=== PATIENT | female | born 1960 | race Caucasian/White ===

== ENCOUNTER 2017-06-03 17:12 | Inpatient (IN) ==
[2017-06-03] MEDS ORDERED: PHYTONADIONE 10 MG/1 ML AMP SUBCUT ONE (19:44)
[2017-06-03] MEDS ORDERED: SODIUM CHLORIDE 0.9% 250 ML IV PRN (19:48)
[2017-06-03] MEDS ORDERED: ONDANSETRON 4 MG/2 ML VIAL IV PRN (19:49)
[2017-06-03] MEDS ORDERED: ACETAMINOPHEN 325 MG TABLET PO PRN (19:49)
[2017-06-03] MEDS ORDERED: ZALEPLON 5 MG CAPSULE PO PRN (19:49)
[2017-06-03] MEDS ORDERED: NITROGLYCERIN SL 0.4 MG TABLET SL PRN (19:52)
--- NOTE | 2017-06-03 19:57 | Hospitalist History & Physical ---
Assessment and Plan (1) Anemia Status: Acute Assessment and plan: The patient is admitted the hospital for evaluation of anemia. 3 units packed red blood cell transfusion. The patient will receive vitamin K. We are going to hold Coumadin and continue her usual home medications. I am going leave off amiodarone because it is going to intensify the Coumadin toxicity. The patient will have hydration after transfusion is given. Will recheck electrolytes and pro time in the morning as well as hemoglobin. I am going to consult Dr. Galarza for GI. Current Visit: Yes (2) Guaiac positive stools Status: Acute Current Visit: Yes (3) Diabetes Status: Chronic Current Visit: No (4) History of atrial fibrillation Status: Chronic Current Visit: No (5) PIOTR (obstructive sleep apnea) Status: Chronic Current Visit: No History of Present Illness Chief complaint: Profound anemia with guaiac positive stools History of present illness: Ms. Betancourt is a 57 year old female with history of atrial fibrillation requiring Coumadin therapy. The patient has diabetes mellitus, obesity, obstructive sleep apnea, essential hypertension. The patient has been feeling short of breath with cough and congestion. She went to her nurse practitioner. She was found to have profound anemia with hemoglobin 5.4 and Coumadin toxicity with INR greater than 6. The patient was referred from the nurse practitioner to [place] emergency room and from there referred to direct admission in the intensive care unit here at [facility]. The patient denies vomiting or bright red bleeding from her rectum. She has had dark stools for greater than a week. She was last hospitalized about 2 weeks ago at [facility] for infection and ulcerations on the right lower extremity which have now improved. The patient denies fever, chills, angina at this time. The patient was directly admitted to the coronary care unit from [place] emergency room for therapy of profound anemia with guaiac positive stools and elevated INR. Home Medications Medication Instructions Recorded Confirmed Type Aspirin [Ecotrin] 81 mg PO DAILY 04/13/17 04/13/17 History Desipramine [Norpramin] 25 mg PO DAILY 04/13/17 04/13/17 History Ferrous Sulfate Tab [Feosol 325 mg PO DAILY 04/13/17 04/13/17 History Original Tab] Gabapentin Cap/Tab [Neurontin 300 mg PO BID 04/13/17 04/13/17 History Cap/Tab] Nitroglycerin Sl Tab [Nitrostat] 0.4 mg SL Q5M PRN 04/13/17 04/13/17 History Potassium Chloride 40 meq PO DAILY 04/13/17 04/13/17 History clonazePAM [Klonopin] 1 mg PO DAILY 04/13/17 04/13/17 History Carbidopa/Levodopa 25-100 [Sinemet 1 tablet PO DAILY #30 tablet 04/20/17 Rx 25-100] Carvedilol [Coreg] 12.5 mg PO BID #60 tablet 04/20/17 Rx Furosemide Tab [Lasix Tab] 40 mg PO DAILY #30 tablet 04/20/17 Rx Glimepiride [Amaryl] 4 mg PO DAILY W/BREAKFAST #30 04/20/17 Rx tablet Insulin NPH Hum/Reg Insulin Hm 20 unit SUBCUT BID #10 ml 04/20/17 Rx [NovoLIN 70/30] Levothyroxine Tab [Synthroid Tab] 25 mcg PO DAILY@0700 #30 tablet 04/20/17 Rx Lovastatin 40 mg PO DAILY #30 tablet 04/20/17 Rx Ranitidine Tab [Zantac Tab] 150 mg PO BID #60 tablet 04/20/17 Rx Warfarin [Coumadin] 7.5 mg PO DAILY@1800 #30 tablet 04/20/17 Rx cephALEXin [Cephalexin] 500 mg PO BID #16 capsule 04/20/17 Rx Allergies Allergy/AdvReac Type Severity Reaction Status Date / Time No Known Allergies Allergy Verified 04/13/17 22:15 Medical,Surgical,& Family Hx - Medical History Cardio: History of: CHF, Cardiovascular Problems (Afib; venous stasis ) Psychological: History of: Anxiety Disorders, Depression No history of: Previous Suicide Attempt Endocrine: History of: Thyroid Disorder Respiratory: History of: COPD, Obstructive Sleep Apnea Gastrointestinal: History of: Hemorrhoids (hemorrhoidectomy at [place] with dr. leach) - Surgical History Reproductive Surgeries: Surgical HX of;: Hysterectomy (total hysterectomy) - Family History Family History: Reports;: Family Cancer (Brother and Mother), Family Diabetes ( Mother), Family Heart Disease (Brother, Sister, Mother), Family Hypertension ( mother and sister), Family Stroke (Brother) Denies;: Family Anesthesia Reaction, Family Hematology, Family Psychiatric Problems - Social History Smoking Status: Never smoker Frequency of Alcohol Use: Occasionally Marital Status: Lives With:: Spouse Functional capacity: independent ambulation 12 point system: reviewed and no additional remarkable complaints except as stated Exam - Constitutional Exam: Constitutional System: Mild distress. No tremulousness. Morbidly obese Head: Normocephalic, atraumatic. Ears, Nose and Throat System: No evidence of Otitis or Mastoiditis. No epistaxis or discharge Eyes System: Pupils equal, round, and reactive. Extraocular muscles intact. Neck: Supple, without adenopathy, No jugular venous distention. No thyromegaly , neck mass, or prior surgery apparent. Respiratory System: Chest clear to auscultation. Cardiovascular System: Heart with regular rate and rhythm, tachycardic. No murmur. GI System: Abdomen soft, nontender. Normo active bowel sounds present. Musculoskeletal System: limbs with 1+ pedal edema. Decreased distal pulses. Healed ulcerations below the knees bilaterally Neurological System: No discernable sensory deficit. No aphasia Psychiatric System: Conversation is rational Results - Labs Lab Results: I have reviewed the past 24 hour labs Labs: Laboratory obtained at [facility] emergency room reveals INR 5.49 hemoglobin 5.4 white blood cell count 10.5 platelets 312,000 stool occult blood positive sodium 141 potassium 3.1 chloride 102 CO2 of 29 BUN 16 creatinine 1.7 - EKG EKG results: sinus rhythm Quality Measures - VTE Contraindication to Pharmacological VTE Prophylaxis: Active Bleeding
[2017-06-03] MEDS: INSULIN NPH/REGULAR 70/30 100 UNIT/ML SUBCUT SCH (20:32)
[2017-06-03] MEDS: PANTOPRAZOLE 40 MG TABLET PO SCH (20:38)
[2017-06-04 05:24] LABS: Basophils # 0.1 10*3/uL (0.0-0.2); Basophils % 0.6 % (0.0-0.8); Eosinophils # 0.4 10*3/uL (0.0-0.87); Eosinophils % 4.6 % (0.00-10.9); Hematocrit 20.9 VOL% (35.7-47.0); Hemoglobin 6.6 GM/DL (12.0-16.0); Immature Granulocytes % 1.9 %; Immature Granulocytes Absolute 0.15 #; Lymphocytes # 1.8 10*3/uL (1.4-4.0); Lymphocytes % 21.9 % (21.3-54.2); Mean Corpuscular HGB Conc 31.6 GM/DL (32-36); Mean Corpuscular Hemoglobin 30 PG (27-34); Mean Corpuscular Volume 96.3 FL (87-102); Monocytes # 0.6 10*3/uL (0.11-0.8); Monocytes % 7.6 % (1.7-12.7); NRBC # 0.02 10*3/uL; Neutrophils # 5.1 10*3/uL (1.4-7.4); Neutrophils % 63.4 % (38.7-73.9); Platelet Count 217 T/CUMM (130-400); Red Blood Count 2.17 MC/CUMM (3.8-5.5); Red Cell Distribution Width 21.1 % (9.3-17.3)
[2017-06-04 05:38] LABS: INR 4.4
[2017-06-04 05:39] LABS: PT Patient Result 51.4 SECS
[2017-06-04 05:53] LABS: Calcium 8.1 MG/DL (8.5-10.1); Magnesium 2.1 MG/DL (1.8-2.4); Osmolality,Calculated 281.3 MOS/KG (273-304); Potassium 2.9 MMOL/L (3.5-5.1)
[2017-06-04 05:54] LABS: Troponin I Only 0.189 NG/ML (0.00-0.045)
--- NOTE | 2017-06-04 06:47 | Gastrointestinal Consult Note ---
Assessment and Plan (1) Anemia Status: Acute Assessment and plan: This patient has black stools likely related to her iron intake. She states that she did not always start off with stools were black but over the last month or so these have turned quite dark leading me to believe there is an upper GI bleed in this patient. This is by no means clear she is having bright red blood per rectum upon occasion as well with left lower quadrant pain and no reflux symptoms. We will start with upper endoscopy tomorrow to rule out esophagitis gastritis gastric cancer peptic ulcer disease and possibly biopsy for sprue. If no significant findings are seen will proceed with colonoscopy the following day. We will leave the patient on clear liquids just in case she needs to prep for colonoscopy as she has fairly severe constipation. She will likely need the additional day of clear liquids. Risks of the procedure were reviewed with the patient and include but are not limited to: Bleeding, infection, perforation, cardiac and pulmonary compromise. She will be getting additional vitamin K today as her INR is still 4.4. Current Visit: Yes (2) Coumadin toxicity Status: Acute Assessment and plan: Patient's INR is down from 6-->4.4 today. We will continue to watch this, I would certainly like to see her down 1.3 or below due to her active bleeding until we can figure out exactly what is going on. She may be a good candidate for Xarelto when this is all of a sudden done if there is no significant bleeding source. I have ordered daily PT/INRs. We will give another dose of vitamin K today. Current Visit: Yes (3) Constipation Status: Acute Assessment and plan: Patient states that she can go as long as a week without having a bowel movement , she does have some left lower quadrant pain possibly related to this condition , we will likely perform colonoscopy before she goes home once her INR is closer to 1.3. We will start with an EGD tomorrow. Current Visit: Yes (4) Left lower quadrant pain Status: Acute Assessment and plan: Possibly related to the underlying constipation of this patient. We will perform colonoscopy at some point and explore the left lower quadrant, I do not believe that she is having diverticulitis at this time. Further recommendations post colonoscopy. We will go ahead and start the patient on some MiraLAX due to this constipation. Current Visit: Yes (5) Guaiac positive stools Status: Acute Current Visit: Yes History of Present Illness Chief complaint: H&H 20.9/6.6, melena, Coumadin toxic, bright red blood per rectum History of present illness: Ms. Betancourt is a 57 year old female who has a history of seeing Woodrow Jerome is her primary doctor and Dr. Zuniga as her transformation consultant. She carries a diagnosis of atrial fibrillation. She states that she has been on iron for the last year or 2 and that she tends to run constipated. She states that with her constipation she can go sometimes as long as a week or more without a bowel movement. The patient has difficulty with some recollection of history and so the veracity of these statements is unclear. What is clear is that the patient has been treated with antibiotics 2 weeks ago for cellulitis and it appears to Dr. Jerome had cut back her Coumadin but after the antibiotic therapy she states that the Coumadin got restarted at previous dose of 7.5 mg per day and she went to a nurse practitioner was discovered to have a INR of > 6 and a low hematocrit with a hemoglobin of 5.4. Patient was brought into the ICU for monitoring as she was transfused her blood as she has a history of sleep apnea and morbid obesity. The patient is having some mild left lower quadrant pain possibly related to her constipation and does complain of some bright red blood per rectum sporadically. She does not complain of any reflux symptoms. She has had bright red blood per rectum sometime the last several weeks but can attest to exactly when. She has been feeling weak and dizzy for the last several days this is intensified her shortness of breath and dyspnea on exertion. She has been given some vitamin K-- her INR is down to 4.4 today with a hematocrit measured at 20.9 hemoglobin up to 6.6 with 2 out of 3 units of blood transfused. She has had colonoscopy done but this was over 20 years ago by a [place] physician by the name of Mc. She has never had upper endoscopy to her knowledge. The patient drinks approximately 4 fuzzy navel wine coolers per day. She denies NSAIDs. She states that years ago she was a much heavier drinker, 6-10 beers per day at times. Home Medications Medication Instructions Recorded Confirmed Type Aspirin [Ecotrin] 81 mg PO DAILY 04/13/17 06/03/17 History Desipramine [Norpramin] 25 mg PO DAILY 04/13/17 06/03/17 History Ferrous Sulfate Tab [Feosol 325 mg PO DAILY 04/13/17 06/03/17 History Original Tab] Gabapentin Cap/Tab [Neurontin 600 mg PO BID 04/13/17 06/03/17 History Cap/Tab] Nitroglycerin Sl Tab [Nitrostat] 0.4 mg SL Q5M PRN 04/13/17 06/03/17 History Potassium Chloride 40 meq PO DAILY 04/13/17 06/03/17 History clonazePAM [Klonopin] 1 mg PO DAILY 04/13/17 06/03/17 History Carbidopa/Levodopa 25-100 [Sinemet 1 tablet PO DAILY #30 tablet 04/20/17 Rx 25-100] Carvedilol [Coreg] 12.5 mg PO BID #60 tablet 04/20/17 06/03/17 Rx Glimepiride [Amaryl] 4 mg PO DAILY W/BREAKFAST #30 04/20/17 06/03/17 Rx tablet Insulin NPH Hum/Reg Insulin Hm 20 unit SUBCUT BID #10 ml 04/20/17 06/03/17 Rx [NovoLIN 70/30] Levothyroxine Tab [Synthroid Tab] 25 mcg PO DAILY@0700 #30 tablet 04/20/1706/03 Rx Lovastatin 40 mg PO DAILY #30 tablet 04/20/17 06/03/17 Rx Ranitidine Tab [Zantac Tab] 150 mg PO BID #60 tablet 04/20/17 06/03/17 Rx cephALEXin [Cephalexin] 500 mg PO BID #16 capsule 04/20/17 06/03/17 Rx Furosemide Tab [Lasix Tab] 40 mg PO BID 06/03/17 06/03/17 History Warfarin [Coumadin] 2 mg PO DAILY 06/03/17 06/03/17 History Allergies Allergy/AdvReac Type Severity Reaction Status Date / Time No Known Allergies Allergy Verified 04/13/17 22:15 Medical,Surgical,& Family Hx - Medical History Cardio: History of: CHF, Cardiovascular Problems (Afib; venous stasis ) Psychological: History of: Anxiety Disorders, Depression No history of: Previous Suicide Attempt Endocrine: History of: Thyroid Disorder Respiratory: History of: COPD, Obstructive Sleep Apnea Gastrointestinal: History of: Hemorrhoids (hemorrhoidectomy at [place] with dr. leach) - Surgical History Reproductive Surgeries: Surgical HX of;: Hysterectomy (total hysterectomy) - Family History Family History: Reports;: Family Cancer (Brother and Mother), Family Diabetes ( Mother), Family Heart Disease (Brother, Sister, Mother), Family Hypertension ( mother and sister), Family Stroke (Brother) Denies;: Family Anesthesia Reaction, Family Hematology, Family Psychiatric Problems - Social History Smoking Status: Never smoker Frequency of Alcohol Use: Occasionally Review of systems: Constitutional: Denies fever, chills, nausea, and vomiting Eyes: Denies dry eyes, and scleral icterus HENT: Denies headaches Cardiovascular: Denies acute chest pain and claudication Respiratory: Patient admits to shortness of breath, wheezing, and difficulty breathing, denies cough Gastrointestinal: As noted in the HPI Genitourinary: Denies dysuria and hematuria Neurologic: Denies vision loss, and loss of sensation Musculoskeletal: She does have joint swelling, joint stiffness, and muscular weakness Psychiatric: Denies depression and gretchen symptoms Heme-Lymph: She does have some easy bruising, but no lymph node enlargement or tenderness, night sweats, as well as some mild excessive bleeding lately Allergies-immunologic: Denies pruritus and rhinorrhea Exam - Constitutional Vitals: Period Temp Pulse Resp BP Sys/Orozco Pulse Ox Last 24 Hr 97.5 F-98.8 F 64-107 12-22 119-159/57-92 93-100 Exam: Constitutional: Well-developed, well-nourished, alert, but mildly confused and in no acute distress Head and face: Head: Normocephalic atraumatic Eyes: Conjunctiva without injection, no gross scleral icterus, pupils equal and round bilaterally Ears: Intact to conversation in both ears Nose: External appearance is normal, nares patent Mouth: Oral mucous membranes moist without erythema dentition noted to be without erosion Neck: Normal appearance, no masses or tenderness, trachea midline Thyroid: Gland midline and appropriate size for age Respiratory: Normal respiratory effort, clear to auscultation, she does have some end expiratory wheezes, but no rhonchi or rales Cardiovascular: Regular rate and rhythm, normal S1, S2, the exam is without rubs, murmurs or gallops. Gastrointestinal: Nontender to palpation, normal active bowel sounds, tone normal without rigidity or guarding, no masses present, no hepatomegaly, no spleen tip felt. She has a large abdominal pannus, rectal exam shows brown stool that is moderately guaiac positive, she has pain in all directions and has some low-grade hemorrhoids noted mostly posteriorly. Lymphatic: Neck without adenopathy, axilla without lymphadenopathy present Musculoskeletal: Right and left lower extremities without evidence of edema Skin and subcutaneous tissue: The patient has evidence of recent cellulitis with hyperpigmentation on the tibial regions bilaterally there are signs of recent ulceration here that appears to be healing fairly well. Normal skin turgor, digits and nails without clubbing/cyanosis/deformities. Neurologic: The patient is grossly oriented to person place and time, there is some mild confusion noted as well as decreased hearing bilaterally cranial nerves show tongue movements are normal with normal tongue extrusion midline, light touch sensation is intact. Psychiatric: No hallucinations or delusions are present, does not appear depressed Results - Labs CBC & BMP: 06/04/17 04:53 06/04/17 04:53 Quality Measures - VTE Contraindication to Pharmacological VTE Prophylaxis: Active Bleeding
[2017-06-04] MEDS: LEVOTHYROXINE 25 MCG TABLET PO SCH (07:11)
[2017-06-04] MEDS ORDERED: PHYTONADIONE 10 MG/1 ML AMP SUBCUT ONE (07:30)
[2017-06-04] MEDS: PANTOPRAZOLE 40 MG TABLET PO SCH ×2 (08:37→20:23)
[2017-06-04] MEDS: GLIMEPIRIDE 4 MG TABLET PO SCH (08:37)
[2017-06-04] MEDS: CARBIDOPA/LEVODOPA 25-100 MG TABLET PO SCH (08:37)
[2017-06-04] MEDS: POTASSIUM CHLORIDE 20 MEQ TABLET PO SCH ×3 (08:37→20:23)
[2017-06-04] MEDS: clonazePAM 0.5 MG TABLET PO SCH (08:37)
[2017-06-04] MEDS: NIFEdipine 10 MG CAPSULE PO PRN ×2 (08:37→14:33)
[2017-06-04] MEDS: INSULIN NPH/REGULAR 70/30 100 UNIT/ML SUBCUT SCH ×2 (08:38→17:00)
[2017-06-04] MEDS: POLYETHYLENE GLYCOL POWDER 17 GM PACK PO SCH ×2 (08:44→20:23)
[2017-06-04 09:50] LABS: Hematocrit 24.7 VOL% (35.7-47.0); Hemoglobin 7.7 GM/DL (12.0-16.0)
[2017-06-04] MEDS: POTASSIUM CHLORIDE RIDER 10 MEQ in PREMIX 1 EACH IV SCH ×4 (10:00→13:06)
[2017-06-04 10:30] LABS: Hematocrit 22.6 VOL% (35.7-47.0); Hemoglobin 7.4 GM/DL (12.0-16.0)
--- NOTE | 2017-06-04 10:51 | Hospitalist Progress Note ---
Assessment and Plan - Time spent with patient Time spent with patient: Greater than 30 minutes (1) Anemia Status: Acute Current Visit: Yes Qualifiers: Other causes of anemia: acute posthemorrhagic (2) History of atrial fibrillation Status: Chronic Assessment and plan: Rate controlled. Coumadin held. Vitamin K given. Current Visit: No (3) Diabetes Status: Chronic Current Visit: No Qualifiers: Diabetes mellitus type: type 2 (4) PIOTR (obstructive sleep apnea) Status: Chronic Current Visit: No (5) Coumadin toxicity Status: Acute Current Visit: Yes Qualifiers: Encounter type: initial encounter Injury intent: accidental or unintentional Qualified Code(s): T45.511A - Poisoning by anticoagulants, accidental (unintentional), initial encounter (6) Morbid obesity Status: Acute Current Visit: Yes (7) Hypothyroidism Status: Acute Current Visit: Yes Qualifiers: Hypothyroidism type: acquired Qualified Code(s): E03.9 - Hypothyroidism, unspecified Hospitalist: Subjective Interval history: The patient was admitted overnight with acute blood loss anemia and elevated INR on Coumadin. She is being worked up for GI bleeding. GI consult reviewed. Blood transfusion in progress. Vital signs are stable. Patient seen and examined. No acute events overnight. Case discussed with nursing staff. Labs reviewed. Exam - Constitutional Vitals: Period Temp Pulse Resp BP Sys/Orozco Pulse Ox Last 24 Hr 97.5 F-98.8 F 64-107 12-24 118-161/57-92 90-100 Exam: Constitutional System: No distress. No tremulousness. Morbidly obese Head: Normocephalic, atraumatic. Ears, Nose and Throat System: No pain or tenderness. No epistaxis or discharge Eyes System: Pupils equal, round, and reactive. Extraocular muscles intact. Neck: Supple, without adenopathy, No jugular venous distention. Respiratory System: Chest clear to auscultation. Cardiovascular System: Heart with regular rate and rhythm. No murmur. GI System: Abdomen soft, nontender. Normo active bowel sounds present. Musculoskeletal System: limbs with no pedal edema. Full distal pulses. Neurological System: No discernable sensory deficit. No aphasia Psychiatric System: Conversation is rational Results - Labs CBC & BMP: 06/04/17 10:24 06/04/17 04:53 Lab Results: I have reviewed the past 24 hour labs Quality Measures - VTE Contraindication to Pharmacological VTE Prophylaxis: Active Bleeding
[2017-06-04] MEDS: DESITIN 4OZ/NYSTATIN 15 GRAM MIXTURE PASTE TOP SCH ×2 (12:02→20:25)
[2017-06-04] MEDS ORDERED: POTASSIUM CHLORIDE RIDER 100 ML IV ONE (13:05)
[2017-06-04] MEDS ORDERED: SODIUM CHLORIDE 0.9% 250 ML IV PRN (13:32)
[2017-06-04] MEDS: LOVASTATIN 20 MG TABLET PO SCH (14:33)
[2017-06-04 19:11] LABS: Hematocrit 23.9 VOL% (35.7-47.0); Hemoglobin 7.5 GM/DL (12.0-16.0)
[2017-06-04] MEDS: GABAPENTIN 300 MG CAPSULE PO SCH (20:23)
[2017-06-04] MEDS: FUROSEMIDE 40 MG TABLET PO SCH (20:23)
[2017-06-04] MEDS: CARVEDILOL 12.5 MG TABLET PO SCH (20:23)
[2017-06-04] MEDS: FAMOTIDINE 20 MG TABLET PO SCH (20:23)
[2017-06-05] MEDS: LEVOTHYROXINE 25 MCG TABLET PO SCH (06:19)
[2017-06-05 06:26] LABS: Hematocrit 28.5 VOL% (35.7-47.0); Hemoglobin 9.1 GM/DL (12.0-16.0)
[2017-06-05 06:27] LABS: Basophils # 0.1 10*3/uL (0.0-0.2); Basophils % 0.7 % (0.0-0.8); Eosinophils # 0.4 10*3/uL (0.0-0.87); Eosinophils % 4.1 % (0.00-10.9); Hematocrit 28.3 VOL% (35.7-47.0); Hemoglobin 9.2 GM/DL (12.0-16.0); Immature Granulocytes % 1.5 %; Immature Granulocytes Absolute 0.13 #; Lymphocytes % 22.9 % (21.3-54.2); Mean Corpuscular HGB Conc 32.5 GM/DL (32-36); Mean Corpuscular Hemoglobin 30 PG (27-34); Mean Corpuscular Volume 91.3 FL (87-102); Mean Platelet Volume 9.3 FL (9.6-12.0); Monocytes # 0.6 10*3/uL (0.11-0.8); Monocytes % 6.8 % (1.7-12.7); Neutrophils # 5.7 10*3/uL (1.4-7.4); Platelet Count 241 T/CUMM (130-400); Red Cell Distribution Width 20.2 % (9.3-17.3); White Blood Count 8.9 T/CUMM (4-12)
[2017-06-05 06:41] LABS: INR 1.4; PT Patient Result 15.1 SECS
[2017-06-05 07:04] LABS: Bilirubin,Total 1.1 MG/DL (0.2-1.0); Calcium 8.5 MG/DL (8.5-10.1); Potassium 3.5 MMOL/L (3.5-5.1)
[2017-06-05] MEDS: POLYETHYLENE GLYCOL POWDER 17 GM PACK PO SCH ×2 (09:00→20:09)
[2017-06-05] MEDS: PANTOPRAZOLE 40 MG TABLET PO SCH ×2 (09:00→20:10)
[2017-06-05] MEDS: POTASSIUM CHLORIDE 20 MEQ TABLET PO SCH ×4 (09:00→20:09)
[2017-06-05] MEDS: GABAPENTIN 300 MG CAPSULE PO SCH ×2 (09:00→20:10)
[2017-06-05] MEDS: FAMOTIDINE 20 MG TABLET PO SCH ×2 (09:00→20:10)
[2017-06-05] MEDS: FUROSEMIDE 40 MG TABLET PO SCH ×2 (09:00→20:09)
[2017-06-05] MEDS: INSULIN NPH/REGULAR 70/30 100 UNIT/ML SUBCUT SCH ×2 (09:13→17:00)
[2017-06-05] MEDS: GLIMEPIRIDE 4 MG TABLET PO SCH (09:13)
--- NOTE | 2017-06-05 11:38 | Hospitalist Progress Note ---
Assessment and Plan - Time spent with patient Time spent with patient: Less than 30 minutes (1) Anemia Status: Acute Assessment and plan: Improved this a.m after receiving 2 units RBCs: H&H up to 9.1 and 28.5 from 7.5 & 23.9. GI following patient scheduled for GI scope this a.m. for further evaluation of GI bleed. Will continue to monitor. Current Visit: Yes Qualifiers: Other causes of anemia: acute posthemorrhagic (2) Coumadin toxicity Status: Acute Assessment and plan: Improving after 2 units FFP. INR down to 1.4 from 4.4. PT down to 15.1 from 51.4. Will continue to monitor. Will continue to hold coumadin. Current Visit: Yes Qualifiers: Encounter type: initial encounter Injury intent: accidental or unintentional Qualified Code(s): T45.511A - Poisoning by anticoagulants, accidental (unintentional), initial encounter (3) Diabetes Status: Chronic Assessment and plan: 06/05/17 - Blood sugar are controlled 120s-180s at present. Will continue to monitor and continue current diabetic medication regimen. Current Visit: No Qualifiers: Diabetes mellitus type: type 2 (4) History of atrial fibrillation Status: Chronic Assessment and plan: 06/05/17 - Chronic afib - rate contolled 68-82 heart rate. Current Visit: No Hospitalist: Subjective Interval history: 06/05/17 - Ms Betancourt. Patient seen and chart reviewed. She verbalizes having a terrible night because she was not able to rest related to her "stomach just doesn't feel good". She denies shortness of breath, nausea or vomiting. No acute distress noted. She is awaiting GI (Dr Galarza) to be taken her for procedure this a.m. to further assess her anemia/GI bleed. Her H&H has improved this a.m post transfusion H&H (9.1 and 28.5). Her INR has improved from 4.4 to 1.4 after receiving 2 units of FFP and [place] held. Exam - Constitutional Vitals: Period Temp Pulse Resp BP Sys/Orozco Pulse Ox Last 24 Hr 97.0 F-99 F 68-92 16-24 111-166/53-97 92-100 General appearance: morbidly obese - Head Head exam: Present: normal inspection - Eye Eye exam: Present: EOMI Pupils: Present: EDI - Neck Neck exam: Present: normal inspection. Absent: thyromegaly - Respiratory Respiratory exam: Present: clear to auscultation bilaterally. Absent: stridor, wheezes - Cardiovascular Cardiovascular exam: Present: regular rate and rhythm - GI/Abdominal GI/Abdominal exam: Present: normal bowel sounds, soft. Absent: tenderness, rebound - Extremities Exam Extremities exam: Present: full ROM. Absent: edema - Neurological Exam Neurological exam: Present: alert, oriented X3 - Psychiatric Psychiatric exam: Present: normal affect, other (conversation rational) - Skin Skin exam: Present: normal color, warm, dry Results - Labs CBC & BMP: 06/05/17 05:13 06/05/17 05:13 Lab Results: I have reviewed the past 24 hour labs - Impressions Will Have GI scope procedure today awaiting results to be reported/reviewed. Quality Measures - VTE Contraindication to Pharmacological VTE Prophylaxis: Active Bleeding
[2017-06-05] MEDS: NYSTATIN POWDER 15 GM BOTTLE TOP SCH ×2 (15:26→20:10)
[2017-06-05] MEDS: DESITIN 4OZ/NYSTATIN 15 GRAM MIXTURE PASTE TOP SCH ×2 (15:27→20:10)
[2017-06-05] MEDS ORDERED: PROPOFOL 200 MG/20 ML VIAL IV ONE (17:46)
[2017-06-05] MEDS ORDERED: LIDOCAINE 1% 5 ML VIAL ONE (17:46)
[2017-06-05] MEDS: CARBIDOPA/LEVODOPA 25-100 MG TABLET PO SCH (18:05)
[2017-06-05] MEDS: CARVEDILOL 12.5 MG TABLET PO SCH ×2 (18:05→20:09)
[2017-06-05] MEDS: LOVASTATIN 20 MG TABLET PO SCH (18:05)
[2017-06-05] MEDS: DESIPRAMINE 25 MG TABLET PO SCH (18:05)
[2017-06-05] MEDS: FERROUS SULFATE 325 MG TABLET PO SCH (18:05)
[2017-06-05] MEDS: clonazePAM 0.5 MG TABLET PO SCH (18:05)
--- NOTE | 2017-06-05 18:12 | Operative Note ---
Date of procedure: 06/05/17 Pre-op diagnosis: Hematocrit dropped to 23.9, melena, Coumadin toxic Post-op diagnosis: other (This patient does have scant amount of retained fluid in her stomach and some mild patchy gastritis but no gross evidence of heme or bleeding source. The patient further states that she was having some bright red blood per rectum today despite her INR being down from 6.6-->1.4, we will arrange for colonoscopy for tomorrow.) Procedure: PROCEDURE: Esophagogastroduodenoscopy (EGD) with cold biopsy for pathology REFERRING PHYSICIAN: Spring Templeton MD INDICATIONS: This is a patient who presented Coumadin toxic with an INR greater than 6 and dark stools with drop in her hematocrit to 23.9% now status post transfusion. Rule out upper GI bleeding source. The prior H&P was reviewed and interrim changes are as noted: No change from GI consultation yesterday ENDOSCOPIST: Caleb Galarza MD ENDOSCOPE: Olympus Video 100 System upper endoscope ASA CLASS: 3 EXAM: CV: regular rate and rhythm respiratory: Clear without wheezes abdominal: active bowel sounds MEDICATION: Per nursing anesthesia protocol, see their notes PROCEDURE: After discussion of the potential risks and benefits of upper endoscopy, the informed consent was obtained. The patient was then placed in the left lateral decubitus position where sedation was achieved as noted above. Esophageal intubation was performed without difficulty, and the endoscope was advanced through the esophagus, stomach and duodenum. A slow withdrawal was then performed with retroflexion in the stomach for careful inspection of the incisura angularis, fundus and cardia. The scope was then returned to a neutral position and withdrawn through the esophagus. The patient tolerated the procedure well and without complication. BIOPSIES: Gastric antrum/body obtained PHOTOGRAPHS: FINDINGS: Hypopharynx and Larynx: Normal Esohagoscopy Upper and middle thirds: Normal Lower third normal Esophogastric junctions: no gross evidence of Zaria-Maurice tear, cancer , stricture, esophagitis and/or Appiah's Gastroscopy: Cardia/Fundus: Scant amount of yellow fluid mixed with some food consistent with mild gastroparesis Body: no gross evidence of heme, some mild scanty gastritis noted Antrum and pylorus no bleeding source, no gross evidence of erosions mild [id number] erythema. Duodenoscopy: Bulb normal Second and third portions: Normal IMPRESSION: This patient does have scant amount of retained fluid in her stomach and some mild patchy gastritis but no gross evidence of heme or bleeding source. The patient further states that she was having some bright red blood per rectum today despite her INR being down from 6.6-->1.4, we will arrange for colonoscopy for tomorrow. RECOMMENDATIONS: Follow up for biopsy results in 1-2 weeks by phone [phone] Continue anti-gastroesophageal reflux measures (avoid carbonated and acidic beverages, avoid eating within 2 hours of bedtime, avoid tight fitting clothing , and elevate the front bed posts 6 inches prior to sleeping. The patient can be on clear liquids tonight We will arrange for colonoscopy to occur tomorrow morning. Caleb Galarza MD COPY TO: Spring Templeton MD Anesthesia: MAC Surgeon / Physician: Caleb Galarza Estimated blood loss: minimal Specimens: other (Gastric antrum/body) Condition: stable Disposition: post procedure unit ([facility] Suite) Results - Labs CBC & BMP: 06/05/17 05:13 06/05/17 05:13 Discharge Plan - Discharge Medications No Action Nitroglycerin Sl Tab [Nitrostat] 0.4 mg SL Q5M PRN PRN Reason: Chest Pain Ferrous Sulfate Tab [Feosol Original Tab] 325 mg PO DAILY Desipramine [Norpramin] 25 mg PO DAILY Gabapentin Cap/Tab [Neurontin Cap/Tab] 600 mg PO BID Carvedilol [Coreg] 12.5 mg PO BID #60 tablet Glimepiride [Amaryl] 4 mg PO DAILY W/BREAKFAST #30 tablet Ranitidine Tab [Zantac Tab] 150 mg PO BID #60 tablet Warfarin [Coumadin] 2 mg PO DAILY Aspirin [Ecotrin] 81 mg PO DAILY clonazePAM [Klonopin] 1 mg PO DAILY Potassium Chloride 40 meq PO DAILY Lovastatin 40 mg PO DAILY #30 tablet cephALEXin [Cephalexin] 500 mg PO BID #16 capsule Carbidopa/Levodopa 25-100 [Sinemet 25-100] 1 tablet PO DAILY #30 tablet Levothyroxine Tab [Synthroid Tab] 25 mcg PO DAILY@0700 #30 tablet Insulin NPH Hum/Reg Insulin Hm [NovoLIN 70/30] 20 unit SUBCUT BID #10 ml Furosemide Tab [Lasix Tab] 40 mg PO BID - Follow Up or Referral - Forms/Instructions
--- NOTE | 2017-06-05 18:19 | Gastrointestinal Progress Note ---
Assessment and Plan (1) Anemia Status: Acute Assessment and plan: This patient has black stools likely related to her iron intake. She states that she did not always start off with stools were black but over the last month or so these have turned quite dark leading me to believe there is an upper GI bleed in this patient. This is by no means clear she is having bright red blood per rectum upon occasion as well with left lower quadrant pain and no reflux symptoms. We will start with upper endoscopy tomorrow to rule out esophagitis gastritis gastric cancer peptic ulcer disease and possibly biopsy for sprue. If no significant findings are seen will proceed with colonoscopy the following day. We will leave the patient on clear liquids just in case she needs to prep for colonoscopy as she has fairly severe constipation. She will likely need the additional day of clear liquids. Risks of the procedure were reviewed with the patient and include but are not limited to: Bleeding, infection, perforation, cardiac and pulmonary compromise. She will be getting additional vitamin K today as her INR is still 4.4. 06/05/17--the patient's upper endoscopy was fairly unrevealing. There was some mild patchy gastritis in the bottom part of the stomach but no evidence of a bleeding source/ulcer/cancer. Routine biopsies were obtained. The patient did complain today of having some bright red blood per rectum now that she is eating a clear liquid diet. There may be a lower GI bleeding source. We will proceed with colonoscopy tomorrow given the lack of findings on today's upper endoscopy. Note that the patient's INR is now down to 1.4. Now that her INR is improved I note the patient is gotten transfused a total of 5 units packed red blood cells with improvement of her hematocrit up to 28% we will watch for further improvement over time. Current Visit: Yes Qualifiers: Other causes of anemia: acute posthemorrhagic (2) Coumadin toxicity Status: Acute Assessment and plan: Patient's INR is down from 6-->4.4 today. We will continue to watch this, I would certainly like to see her down 1.3 or below due to her active bleeding until we can figure out exactly what is going on. She may be a good candidate for Xarelto when this is all of a sudden done if there is no significant bleeding source. I have ordered daily PT/INRs. We will give another dose of vitamin K today. 06/05/17--We will continue to watch the patient's INR during this hospitalization while she is off the Coumadin to see further fresh frozen plasma will be needed. Hematocrit appears to be improving but did appear to require 5 units of packed red blood cells. She is complaining of some bright red blood per rectum we will perform colonoscopy tomorrow in order to establish an etiology. The problem may simply be hemorrhoids but ischemic colitis, diverticular bleeding, AVMs, and cancer are all still in the differential. Current Visit: Yes Qualifiers: Encounter type: initial encounter Injury intent: accidental or unintentional Qualified Code(s): T45.511A - Poisoning by anticoagulants, accidental (unintentional), initial encounter (3) Constipation Status: Acute Assessment and plan: Patient states that she can go as long as a week without having a bowel movement , she does have some left lower quadrant pain possibly related to this condition , we will likely perform colonoscopy before she goes home once her INR is closer to 1.3. We will start with an EGD tomorrow. 06/05/17--the patient's constipation appears to be under control for the present time. Current Visit: Yes (4) Left lower quadrant pain Status: Acute Assessment and plan: Possibly related to the underlying constipation of this patient. We will perform colonoscopy at some point and explore the left lower quadrant, I do not believe that she is having diverticulitis at this time. Further recommendations post colonoscopy. We will go ahead and start the patient on some MiraLAX due to this constipation. 06/05/17--Left lower quadrant pain is persistent and may reflect underlying adhesive disease versus a colitis. Colonoscopy to follow tomorrow. Current Visit: Yes (5) Guaiac positive stools Status: Acute Current Visit: Yes Gastroenterology - PN: Subj Interval history: Patient states that she is having bright red blood per rectum at this point, we will proceed with colonoscopy as the upper endoscopy demonstrated the following : This patient does have scant amount of retained fluid in her stomach and some mild patchy gastritis but no gross evidence of heme or bleeding source. The patient further states that she was having some bright red blood per rectum today despite her INR being down from 6.6-->1.4, we will arrange for colonoscopy for tomorrow. Exam (Progress Note) - Constitutional Vitals: Period Temp Pulse Resp BP Sys/Orozco Pulse Ox Last 24 Hr 97.5 F-99 F 68-86 16-22 117-149/66-97 92-100 General appearance: mild distress - Head Head exam: Present: normocephalic - Eye Eye exam: Present: EOMI - Respiratory Respiratory exam: Present: clear to auscultation bilaterally. Absent: rhonchi, stridor, wheezes - Cardiovascular Cardiovascular exam: Present: regular rate and rhythm - GI/Abdominal GI/Abdominal exam: Present: normal bowel sounds, soft. Absent: distended, tenderness, rebound - Extremities Exam Extremities exam: Present: edema - Neurological Exam Neurological exam: Present: alert, oriented X3. Absent: CN II-XII intact - Psychiatric Psychiatric exam: Present: normal affect, normal mood - Skin Skin exam: Present: warm Results - Labs CBC & BMP: 06/05/17 05:13 06/05/17 05:13
--- NOTE | 2017-06-05 18:23 | Anesthesia Post-Op ---
Anesthesia Post OP - Post Ansesthetic Evaluation Patient seen in post op: Yes Resp: within normal limits CV: within normal limits Mental: within normal limits Temp: within normal limits [id number]: within normal limits Nausea and Vomiting: within normal limits Pain: within normal limits
[2017-06-05] MEDS ORDERED: POLYETHYLENE GLYCOL POWDER 255 GM BOTTLE PO ONE (18:30)
[2017-06-05] MEDS: BISACODYL 5 MG TABLET PO SCH (18:55)
[2017-06-05 19:49] LABS: Hematocrit 27.3 VOL% (35.7-47.0); Hemoglobin 8.7 GM/DL (12.0-16.0)
[2017-06-05] MEDS ORDERED: MAGNESIUM CITRATE 300 ML BOTTLE PO ONE ×2 (21:00→21:58)
[2017-06-06] MEDS: BISACODYL 5 MG TABLET PO SCH ×3 (00:11→18:33)
[2017-06-06 06:05] LABS: Basophils # 0.1 10*3/uL (0.0-0.2); Basophils % 0.8 % (0.0-0.8); Eosinophils # 0.2 10*3/uL (0.0-0.87); Eosinophils % 2.9 % (0.00-10.9); Hematocrit 27.9 VOL% (35.7-47.0); Immature Granulocytes % 0.8 %; Immature Granulocytes Absolute 0.06 #; Lymphocytes # 1.7 10*3/uL (1.4-4.0); Lymphocytes % 23.4 % (21.3-54.2); Mean Corpuscular HGB Conc 32.3 GM/DL (32-36); Mean Corpuscular Hemoglobin 30 PG (27-34); Mean Corpuscular Volume 92.7 FL (87-102); Mean Platelet Volume 9.1 FL (9.6-12.0); Monocytes # 0.6 10*3/uL (0.11-0.8); Monocytes % 8.7 % (1.7-12.7); Neutrophils # 4.7 10*3/uL (1.4-7.4); Neutrophils % 63.4 % (38.7-73.9); Platelet Count 202 T/CUMM (130-400); Red Blood Count 3.01 MC/CUMM (3.8-5.5); Red Cell Distribution Width 19.3 % (9.3-17.3); White Blood Count 7.3 T/CUMM (4-12)
[2017-06-06] MEDS: LEVOTHYROXINE 25 MCG TABLET PO SCH (06:19)
[2017-06-06 06:27] LABS: INR 1.2; PT Patient Result 12.6 SECS
[2017-06-06 06:29] LABS: INR 1.2; PT Patient Result 12.5 SECS; Partial Thromboplastin Time 28.6 SECS (0-40)
[2017-06-06 06:39] LABS: Bilirubin,Total 0.9 MG/DL (0.2-1.0); Calcium 8.3 MG/DL (8.5-10.1); Magnesium 2.6 MG/DL (1.8-2.4); Osmolality,Calculated 278.3 MOS/KG (273-304); Potassium 3.5 MMOL/L (3.5-5.1); Total Protein 6.9 G/DL (6.4-8.3)
--- NOTE | 2017-06-06 09:11 | Operative Note ---
Date of procedure: 06/06/17 Pre-op diagnosis: Anemia with bright red blood per rectum, hematocrit stable at 27.9% Post-op diagnosis: other (This patient is low-grade visualization of blood was likely due to the internal and external hemorrhoids, 4 polyps were removed from the colon and the spots previously mentioned, none of these were large. The patient does have some mild left sided diverticuli.) Procedure: PROCEDURE: Colonoscopy with hot biopsy polypectomy REFERRING PHYSICIAN: Spring Templeton MD INDICATIONS: Anemia with hematocrit stable at 27.9 the patient with rectal bleeding and no significant upper endoscopy findings. The prior H&P was reviewed and interrim changes are as noted: ENDOSCOPIST: Caleb Galarza MD ENDOSCOPE: E-Sign Video 100 System colonoscope COLON PREPARATION: 238 gm of PEG containing laxative and 1.9 liters of gatoraid/sports drink and dulcolax 15 mg q8 hours x 3 ASA CLASS: 4 EXAM: CV: regular rate and rhythm Respiratory: Clear without wheezes Abdominal: active bowel sounds Rectal: Good tone, no fissures or fistulas MEDICATION: Per nursing anesthesia protocol, see their notes PROCEDURE: After discussion of the potential risks and benefits of colonoscopy, the informed consent was obtained, from patient or health care surrogate. The patient was then placed in the left lateral decubitus position where sedation was achieved as noted above. Rectal examination was followed by insertion of the colonoscope. The colonoscope was passed under direct visualization to the cecum. Advancement was facilitated by insertion/withdrawl techniques, abdominal pressure and patient positioning. Once the cecal pole was reached, slow withdrawal was performed with the findings as noted below. The patient tolerated the procedure well and without complication. QUALITY OF PREP: Excellent WITHDRAWL TIME: 7 minutes 42 seconds BIOPSIES: Ascending, transverse, rectal polyps PHOTOGRAPHS: Obtained FINDINGS: The musoca appeared normal in the following regions: sigmoid colon, descending colon, splenic flexure, hepatic flexure, and cecum. Position within the cecum was confirmed by ileocecal valve, appendiceal oriface, and the convergence of folds (crows foot). No colitis, mass or AVM was noted throughout the colon. Patient had a single 6 mm polyp removed by hot biopsy in the ascending colon, another 7 mm polyp was removed in the transverse colon and another 2 polyps removed in the rectum at 6 and 7 mm by hot biopsy polypectomy. Mild left-sided diverticulosis noted. Intubation of the TI was achieved x 5 cm with normal appearence, this patient had moderate-sized internal and external hemorrhoids. These did not require banding. IMPRESSION: This patient is low-grade visualization of blood was likely due to the internal and external hemorrhoids, 4 polyps were removed from the colon and the spots previously mentioned, none of these were large. The patient does have some mild left sided diverticuli. RECOMMENDATIONS: High fiber diet Repeat colonosocopy will be in 5-10 years depending on pathology of the polyps removed. Citrucel 1 tablespoon in 12 oz juice BID: 1 bottle: :11 Follow up by phone for biopsy results in 1-2 weeks by phone Caleb Galarza MD COPY TO: Spring Templeton MD Anesthesia: MAC Surgeon / Physician: Caleb Galarza Estimated blood loss: minimal Specimens: other (Ascending, transverse, rectal polyps.) Condition: stable Disposition: post procedure unit ([facility]) Results - Labs CBC & BMP: 06/06/17 05:09 06/06/17 05:09 Discharge Plan - Discharge Medications No Action Nitroglycerin Sl Tab [Nitrostat] 0.4 mg SL Q5M PRN PRN Reason: Chest Pain Ferrous Sulfate Tab [Feosol Original Tab] 325 mg PO DAILY Desipramine [Norpramin] 25 mg PO DAILY Gabapentin Cap/Tab [Neurontin Cap/Tab] 600 mg PO BID Carvedilol [Coreg] 12.5 mg PO BID #60 tablet Glimepiride [Amaryl] 4 mg PO DAILY W/BREAKFAST #30 tablet Ranitidine Tab [Zantac Tab] 150 mg PO BID #60 tablet Warfarin [Coumadin] 2 mg PO DAILY Aspirin [Ecotrin] 81 mg PO DAILY clonazePAM [Klonopin] 1 mg PO DAILY Potassium Chloride 40 meq PO DAILY Lovastatin 40 mg PO DAILY #30 tablet cephALEXin [Cephalexin] 500 mg PO BID #16 capsule Carbidopa/Levodopa 25-100 [Sinemet 25-100] 1 tablet PO DAILY #30 tablet Levothyroxine Tab [Synthroid Tab] 25 mcg PO DAILY@0700 #30 tablet Insulin NPH Hum/Reg Insulin Hm [NovoLIN 70/30] 20 unit SUBCUT BID #10 ml Furosemide Tab [Lasix Tab] 40 mg PO BID - Follow Up or Referral - Forms/Instructions
--- NOTE | 2017-06-06 09:17 | Gastrointestinal Progress Note ---
Assessment and Plan (1) Anemia Status: Acute Assessment and plan: This patient has black stools likely related to her iron intake. She states that she did not always start off with stools were black but over the last month or so these have turned quite dark leading me to believe there is an upper GI bleed in this patient. This is by no means clear she is having bright red blood per rectum upon occasion as well with left lower quadrant pain and no reflux symptoms. We will start with upper endoscopy tomorrow to rule out esophagitis gastritis gastric cancer peptic ulcer disease and possibly biopsy for sprue. If no significant findings are seen will proceed with colonoscopy the following day. We will leave the patient on clear liquids just in case she needs to prep for colonoscopy as she has fairly severe constipation. She will likely need the additional day of clear liquids. Risks of the procedure were reviewed with the patient and include but are not limited to: Bleeding, infection, perforation, cardiac and pulmonary compromise. She will be getting additional vitamin K today as her INR is still 4.4. 06/05/17--the patient's upper endoscopy was fairly unrevealing. There was some mild patchy gastritis in the bottom part of the stomach but no evidence of a bleeding source/ulcer/cancer. Routine biopsies were obtained. The patient did complain today of having some bright red blood per rectum now that she is eating a clear liquid diet. There may be a lower GI bleeding source. We will proceed with colonoscopy tomorrow given the lack of findings on today's upper endoscopy. Note that the patient's INR is now down to 1.4. Now that her INR is improved I note the patient is gotten transfused a total of 5 units packed red blood cells with improvement of her hematocrit up to 28% we will watch for further improvement over time. 06/06/17--colonoscopy completed this morning with the following findings: This patient has scant visualization of blood was likely due to the internal and external hemorrhoids, 4 polyps were removed from the colon in the ascending, transverse, and rectal regions, but none of these were large. The patient does have some mild left sided diverticuli. There was no gross evidence of a bleeding source elsewhere. Would suggest treatment with pantoprazole 40 mg per day and consideration of a tagged red blood cell scan if the patient starts bleeding again acutely. We will call her with the biopsy results from the upper and lower scopes done but I doubt that she will need a repeat colonoscopy any sooner than 5 years from now. We will start her on MiraLAX twice daily to help with her underlying constipation. I will see her back in my office in another 1-2 months for repeat CBC and evaluation for further workup with capsule endoscopy. She can be discharged today in my opinion. Current Visit: Yes Qualifiers: Other causes of anemia: acute posthemorrhagic (2) Coumadin toxicity Status: Acute Assessment and plan: Patient's INR is down from 6-->4.4 today. We will continue to watch this, I would certainly like to see her down 1.3 or below due to her active bleeding until we can figure out exactly what is going on. She may be a good candidate for Xarelto when this is all of a sudden done if there is no significant bleeding source. I have ordered daily PT/INRs. We will give another dose of vitamin K today. 06/05/17--We will continue to watch the patient's INR during this hospitalization while she is off the Coumadin to see further fresh frozen plasma will be needed. Hematocrit appears to be improving but did appear to require 5 units of packed red blood cells. She is complaining of some bright red blood per rectum we will perform colonoscopy tomorrow in order to establish an etiology. The problem may simply be hemorrhoids but ischemic colitis, diverticular bleeding, AVMs, and cancer are all still in the differential. 06/06/17--doing fine. Unclear bleeding source. Likely okay to restart anticoagulation but if the patient is left on Coumadin we need to follow her INR levels more carefully. Current Visit: Yes Qualifiers: Encounter type: initial encounter Injury intent: accidental or unintentional Qualified Code(s): T45.511A - Poisoning by anticoagulants, accidental (unintentional), initial encounter (3) Constipation Status: Acute Assessment and plan: Patient states that she can go as long as a week without having a bowel movement , she does have some left lower quadrant pain possibly related to this condition , we will likely perform colonoscopy before she goes home once her INR is closer to 1.3. We will start with an EGD tomorrow. 06/05/17--the patient's constipation appears to be under control for the present time. 06/06/17--MiraLAX twice daily should be adequate for controlling her underlying constipation. Current Visit: Yes (4) Left lower quadrant pain Status: Acute Assessment and plan: Possibly related to the underlying constipation of this patient. We will perform colonoscopy at some point and explore the left lower quadrant, I do not believe that she is having diverticulitis at this time. Further recommendations post colonoscopy. We will go ahead and start the patient on some MiraLAX due to this constipation. 06/05/17--Left lower quadrant pain is persistent and may reflect underlying adhesive disease versus a colitis. Colonoscopy to follow tomorrow. 06/06/17--no gross evidence of colitis, she may have some diverticular disease with adhesions but no evidence of infection. She can certainly be discharged home at this time. Current Visit: Yes (5) Guaiac positive stools Status: Acute Current Visit: Yes Gastroenterology - PN: Subj Interval history: No further complaints except some low-grade rectal bleeding with the patient's prep. Colonoscopy results as mentioned above. Exam (Progress Note) - Constitutional Vitals: Period Temp Pulse Resp BP Sys/Orozco Pulse Ox Last 24 Hr 97.3 F-98.7 F 67-82 16-22 130-154/69-92 94-100 General appearance: no acute distress - Head Head exam: Present: normocephalic - Eye Eye exam: Present: EOMI - Respiratory Respiratory exam: Present: clear to auscultation bilaterally - Cardiovascular Cardiovascular exam: Present: regular rate and rhythm - GI/Abdominal GI/Abdominal exam: Present: normal bowel sounds, soft. Absent: distended, tenderness - Extremities Exam Extremities exam: Present: edema, other (This patient has hyperpigmented areas on her tibias bilaterally consistent with healing cellulitis) - Neurological Exam Neurological exam: Present: alert, oriented X3 - Psychiatric Psychiatric exam: Present: normal affect, normal mood Results - Labs CBC & BMP: 06/06/17 05:09 06/06/17 05:09
--- NOTE | 2017-06-06 09:32 | Anesthesia Post-Op ---
Anesthesia Post OP - Post Ansesthetic Evaluation Patient seen in post op: Yes Resp: within normal limits CV: within normal limits Mental: within normal limits Temp: within normal limits [id number]: within normal limits Nausea and Vomiting: within normal limits Pain: within normal limits
[2017-06-06] MEDS: INSULIN NPH/REGULAR 70/30 100 UNIT/ML SUBCUT SCH (10:39)
[2017-06-06] MEDS: POTASSIUM CHLORIDE 20 MEQ TABLET PO SCH ×3 (10:40→18:33)
[2017-06-06] MEDS: DESIPRAMINE 25 MG TABLET PO SCH (10:40)
[2017-06-06] MEDS: LOVASTATIN 20 MG TABLET PO SCH (10:41)
[2017-06-06] MEDS: CARBIDOPA/LEVODOPA 25-100 MG TABLET PO SCH (10:41)
[2017-06-06] MEDS: PANTOPRAZOLE 40 MG TABLET PO SCH (10:41)
[2017-06-06] MEDS: CARVEDILOL 12.5 MG TABLET PO SCH (10:41)
[2017-06-06] MEDS: FUROSEMIDE 40 MG TABLET PO SCH (10:41)
[2017-06-06] MEDS: FERROUS SULFATE 325 MG TABLET PO SCH (10:42)
[2017-06-06] MEDS: clonazePAM 0.5 MG TABLET PO SCH (10:42)
[2017-06-06] MEDS: GLIMEPIRIDE 4 MG TABLET PO SCH (10:42)
[2017-06-06] MEDS: FAMOTIDINE 20 MG TABLET PO SCH (10:42)
[2017-06-06] MEDS: GABAPENTIN 300 MG CAPSULE PO SCH (10:44)
[2017-06-06] MEDS: POLYETHYLENE GLYCOL POWDER 17 GM PACK PO SCH (10:45)
[2017-06-06] MEDS: DESITIN 4OZ/NYSTATIN 15 GRAM MIXTURE PASTE TOP SCH (10:45)
[2017-06-06 12:11] VITALS: BP 147/80
--- NOTE | 2017-06-06 12:14 | Discharge Summary ---
Hospital Course - Hospital Course Hospital Course: Ms. Betancourt is a 57 year old female with history of atrial fibrillation requiring Coumadin therapy. The patient has diabetes mellitus, obesity, obstructive sleep apnea, essential hypertension. The patient has been feeling short of breath with cough and congestion. She went to her nurse practitioner. She was found to have profound anemia with hemoglobin 5.4 and Coumadin toxicity with INR greater than 6. She had dark stools for greater than a week. She was admitted to the hospitalist service for continuation of care. She was transfused 3 units PRBCs. Her coumadin was held. Gastroenterology was consulted. She required another 2 units PRBC transfusion, as well as 2 units of FFP. Colonoscopy performed 06/06/[address] Galarza with internal and external hemorrhoids as well as removal of 4 small polyps. She is now stable with stable hemoglobin. She has reached maximal benefit of inpatient stay and will be discharged to home. She will continue coumadin for her atrial fibrillation with follow-up by her pcp, Dr. Steward. - Time spent with patient Time with patient DS: Greater than 30 minutes (35) Diagnosis - Discharge Diagnosis (1) GI bleed Status: Resolved (2) History of atrial fibrillation Status: Chronic (3) Coumadin toxicity Status: Resolved (4) Morbid obesity Status: Chronic Discharge Plan - Discharge Data Disposition: Disch To Home/Self Care Condition at Discharge: Stable Discharge Diet: heart healthy Activity: increase activity as tolerated Hygiene: no restrictions Weight Bearing at Discharge: weight bear as tolerated Contact your physician if you experience:: Shortness of breath, Bleeding - Discharge Medications Continue Nitroglycerin Sl Tab [Nitrostat] 0.4 mg SL Q5M PRN PRN Reason: Chest Pain Ferrous Sulfate Tab [Feosol Original Tab] 325 mg PO DAILY Desipramine [Norpramin] 25 mg PO DAILY Gabapentin Cap/Tab [Neurontin Cap/Tab] 600 mg PO BID Carvedilol [Coreg] 12.5 mg PO BID #60 tablet Glimepiride [Amaryl] 4 mg PO DAILY W/BREAKFAST #30 tablet Ranitidine Tab [Zantac Tab] 150 mg PO BID #60 tablet Warfarin [Coumadin] 2 mg PO DAILY clonazePAM [Klonopin] 1 mg PO DAILY Potassium Chloride 40 meq PO DAILY Lovastatin 40 mg PO DAILY #30 tablet Carbidopa/Levodopa 25-100 [Sinemet 25-100] 1 tablet PO DAILY #30 tablet Levothyroxine Tab [Synthroid Tab] 25 mcg PO DAILY@0700 #30 tablet Insulin NPH Hum/Reg Insulin Hm [NovoLIN 70/30] 20 unit SUBCUT BID #10 ml Furosemide Tab [Lasix Tab] 40 mg PO BID Discontinued Aspirin [Ecotrin] 81 mg PO DAILY cephALEXin [Cephalexin] 500 mg PO BID #16 capsule - Follow Up or Referral - Forms/Instructions Exam - Constitutional Vitals: Period Temp Pulse Resp BP Sys/[place] Pulse Ox Last 24 Hr 97.3 F-98.7 F 67-82 16-22 130-156/69-92 94-100 General appearance: morbidly obese - Head Head exam: Present: normocephalic, atraumatic - Eye Eye exam: Present: EOMI Pupils: Present: EDI - ENT ENT exam: Present: normal exam - Neck Neck exam: Present: normal inspection - Respiratory Respiratory exam: Present: clear to auscultation bilaterally. Absent: rhonchi, wheezes - Cardiovascular Cardiovascular exam: Present: regular rate and rhythm - GI/Abdominal GI/Abdominal exam: Present: normal bowel sounds, soft. Absent: tenderness, rebound - Extremities Exam Extremities exam: Present: normal inspection - Back Exam Back exam: Present: normal inspection - Neurological Exam Neurological exam: Present: alert, oriented X3 - Psychiatric Psychiatric exam: Present: normal affect, normal mood - Skin Skin exam: Present: warm, intact Discharge Results Procedures and tests throughout hospitalization: Pending Orders 06/07/17 04:00 Comp Blood Count Auto Diff IN AM Labs on day of discharge: Labs from last 24 hours 06/06/17 06/06/17 06/06/17 07:03 05:09 05:09 WBC RBC Hgb Hct MCV MCH MCHC RDW Plt Count MPV Neut % (Auto) Lymph % (Auto) Wayne % (Auto) Eos % (Auto) Baso % (Auto) Neut # (Auto) Lymph # (Auto) Wayne # (Auto) Eos # (Auto) Baso # (Auto) Immature Gran % Nucleated RBC % Immature Gran # Nucleated RBCs # Immature Plt Fraction INR 1.2 1.2 PT Patient/Control Mix 12.6 12.5 Circ Anticoag PTT 28.6 Sodium Potassium Chloride Carbon Dioxide Anion Gap BUN Creatinine GFR Calculation BUN/Creatinine Ratio Glucose POC Glucose 97 Calculated Osmolality Calcium Magnesium Total Bilirubin AST ALT Alkaline Phosphatase Total Protein Albumin Globulin Albumin/Globulin Ratio 06/06/17 06/06/17 06/05/17 05:09 05:09 19:54 WBC 7.3 RBC 3.01 L Hgb 9.0 L Hct 27.9 L MCV 92.7 MCH 30 MCHC 32.3 RDW 19.3 H Plt Count 202 MPV 9.1 L Neut % (Auto) 63.4 Lymph % (Auto) 23.4 Wayne % (Auto) 8.7 Eos % (Auto) 2.9 Baso % (Auto) 0.8 Neut # (Auto) 4.7 Lymph # (Auto) 1.7 Wayne # (Auto) 0.6 Eos # (Auto) 0.2 Baso # (Auto) 0.1 Immature Gran % 0.8 Nucleated RBC % 0.0 Immature Gran # 0.06 Nucleated RBCs # 0.00 Immature Plt Fraction 0.0 INR PT Patient/Control Mix Circ Anticoag PTT Sodium 141 Potassium 3.5 Chloride 103 Carbon Dioxide 30 Anion Gap 11.5 BUN 8 Creatinine 1.20 H GFR Calculation 71 BUN/Creatinine Ratio 6.00 Glucose 92 POC Glucose 146 H Calculated Osmolality 278.3 Calcium 8.3 L Magnesium 2.6 H Total Bilirubin 0.90 AST 24 ALT 12 L Alkaline Phosphatase 120 H Total Protein 6.9 Albumin 3.0 L Globulin 3.9 H Albumin/Globulin Ratio 0.7 L 06/05/17 06/05/17 06/05/17 19:18 15:47 11:10 WBC RBC Hgb 8.7 L Hct 27.3 L MCV MCH MCHC RDW Plt Count MPV Neut % (Auto) Lymph % (Auto) Wayne % (Auto) Eos % (Auto) Baso % (Auto) Neut # (Auto) Lymph # (Auto) Wayne # (Auto) Eos # (Auto) Baso # (Auto) Immature Gran % Nucleated RBC % Immature Gran # Nucleated RBCs # Immature Plt Fraction INR PT Patient/Control Mix Circ Anticoag PTT Sodium Potassium Chloride Carbon Dioxide Anion Gap BUN Creatinine GFR Calculation BUN/Creatinine Ratio Glucose POC Glucose 117 H 101 Calculated Osmolality Calcium Magnesium Total Bilirubin AST ALT Alkaline Phosphatase Total Protein Albumin Globulin Albumin/Globulin Ratio DS: Provider Date of admission: 06/03/17 18:30 Primary care physician: . No PCP Attending physician on admission: Zaira Alfonso MD Consults: 06/03/17 19:49 Consult to Physician [CONS] Routine Comment: dark stools, anemia Consulting Provider: Caleb Galarza Person Notified: Dr. Galarza Date Notified: 06/04/17 Time Notified: 06:40 Consult Notification Comment: DR. Galarza at bedside 06/04/17 06:56 Consult to Anesthesiology [CONS] Routine Consulting Provider: Reason for Anesthesiology: Pre-op Clearance Discharging clinician: Radha Mann MD
[2017-06-06] MEDS ORDERED: PROPOFOL 200 MG/20 ML VIAL IV ONE (18:10)
[2017-06-06] MEDS ORDERED: LIDOCAINE 1% 5 ML VIAL ONE (18:10)
[2017-06-06] MEDS: NYSTATIN POWDER 15 GM BOTTLE TOP SCH (18:32)
--- NOTE | 2017-06-09 11:19 | Pathology Report from [facility] ---
[facility] ACCESSION # : [id number] PATIENT NAME : Wale Perez ORDERING DR : Caleb Galarza MD CLINICAL HX: GI bleed POST-OP DX: Same SPECIMEN INFO: Gastric BX GROSS DESCRIPTION: Received in formalin labeled WALE PEREZ are two mcmullen mucosal tissue fragments measuring collectively 0.7 x 0.5 cm submitted in one cassette. DIAGNOSIS FOR WALE PEREZ: GASTRIC ANTRAL BIOPSY: Mild chronic superficial gastritis. No evidence of malignancy. H. pylori not seen on H&E or special stain with appropriate control. COLLECTED DATE: 06/06/2017 [facility] REPORT DATE: 06/09/2017 ELECTRONICALLY SIGNED BY: Scot Reed III, M.D. 06/09/2017 - 10:06:24 [place]
--- NOTE | 2017-06-09 11:21 | Pathology Report from [facility] ---
[facility] ACCESSION # : [id number] PATIENT NAME : Wale Perez ORDERING DR : Caleb Galarza MD CLINICAL HX: Anemia - Rectal bleeding POST-OP DX: #1 Colon polyp #2 Colon polyp #3 Colon polyp SPECIMEN INFO: #1 Ascending colon polyp #2 Transverse colon polyp #3 Rectal colon polyp GROSS DESCRIPTION: Received in formalin in three parts labeled:#1 WALE PEREZ & #1 is a 0.3 x 0.2 cm pink mcmullen tissue fragment submitted in cassette #1.#2 WALE PEREZ & #2 is a 0.2 x 0.2 cm pink mcmullen tissue fragment submitted in cassette #2.#3 WALE PEREZ & #3 are two pink mcmullen mucosal tissue fragments measuring together 0.4 x 0.2 cm submitted in cassette #3. DIAGNOSIS FOR WALE PEREZ: #1 ASCENDING COLON: Tubular adenoma.#2 TRANSVERSE COLON: Tubular adenoma.#3 RECTUM: Tubular adenoma. COLLECTED DATE: 06/06/2017 [facility] REPORT DATE: 06/09/2017 ELECTRONICALLY SIGNED BY: Scot Reed III, M.D. 06/09/2017 - 10:03:56 [facility]
== END 2017-06-06 15:07 | disposition home or self-care (01) | DRG 378 ==
LOC: SUATTDRO 18:30 → N.CC 18:30 → N.5E 06-04 15:26
PROVIDERS: ADMIT Internal Medicine; ATTEND Internal Medicine

== ENCOUNTER 2019-03-11 15:13 | Inpatient (IN) ==
[2019-03-11] MEDS ORDERED: SODIUM CHLORIDE 0.9% 1,000 ML IV PRN (17:44)
[2019-03-11] MEDS ORDERED: FUROSEMIDE 20 MG/2 ML VIAL IV ONE (18:00)
[2019-03-11] MEDS ORDERED: ALBUTEROL 2.5 MG/3 ML NEB RESP TX PRN (18:43)
[2019-03-11] MEDS ORDERED: MORPHINE 4 MG/1 ML VIAL IV PRN (18:43)
[2019-03-11] MEDS ORDERED: GLUCAGON 1 MG VIAL IM PRN (18:48)
[2019-03-11] MEDS ORDERED: DEXTROSE 50% 25 GM/50 ML SYRINGE IV PRN (18:48)
[2019-03-11] MEDS: PANTOPRAZOLE INJ 200 MG in SODIUM CHLORIDE 0.9% 250 ML IV SCH (20:15)
[2019-03-12] MEDS: INSULIN REGULAR 100 UNIT/ML SUBCUT SCH ×5 (01:27→23:46)
[2019-03-12 07:32] LABS: Basophils # 0.1 10*3/uL (0.0-0.2); Eosinophils # 0.1 10*3/uL (0.0-0.87); Eosinophils % 1.8 % (0.00-10.9); Immature Granulocytes % 0.6 %; Immature Granulocytes Absolute 0.03 #; Lymphocytes # 1.1 10*3/uL (1.4-4.0); Mean Corpuscular Volume 78.4 FL (87-102); Mean Platelet Volume 10.2 FL (9.6-12.0); Monocytes % 10.7 % (1.7-12.7); NRBC # 0.02 10*3/uL; Neutrophils % 62.9 % (38.7-73.9); Platelet Count 171 T/CUMM (130-400); Red Blood Count 2.55 MC/CUMM (3.8-5.5); Red Cell Distribution Width 18.6 % (9.3-17.3); White Blood Count 4.9 T/CUMM (4-12)
[2019-03-12 07:36] LABS: Hemoglobin 5.4 GM/DL (12.0-16.0)
[2019-03-12 07:44] LABS: INR 1.2; PT Patient Result 13.2 SECS; Partial Thromboplastin Time 24.6 SECS (0-40)
[2019-03-12 08:03] LABS: Anisocytosis 1+; Calcium 8.2 MG/DL (8.5-10.1); Hypochromasia 1+; Osmolality,Calculated 277.4 MOS/KG (273-304); Platelet Estimate Normal; Polychromasia Slight; Risk Ratio 3.67; Thyroid Stimulating Hormone 4.82 uIU/ml (0.358-3.74); VLDL CHOLESTEROL 16.8 MG/DL
[2019-03-12] MEDS: SIMVASTATIN 20 MG TABLET PO SCH (08:53)
[2019-03-12] MEDS ORDERED: ETOMIDATE 20 MG/10 ML VIAL IV ONE (09:00)
[2019-03-12] MEDS ORDERED: PROPOFOL 200 MG/20 ML VIAL IV ONE (09:00)
[2019-03-12] MEDS ORDERED: LIDOCAINE 100 MG/5 ML SYRINGE ONE (09:00)
[2019-03-12] MEDS ORDERED: FUROSEMIDE 40 MG TABLET PO SCH ×2 (09:00→21:00)
[2019-03-12 12:59] LABS: Basophils # 0.1 10*3/uL (0.0-0.2); Basophils % 1.3 % (0.0-0.8); Eosinophils # 0.1 10*3/uL (0.0-0.87); Eosinophils % 2.3 % (0.00-10.9); Hematocrit 26.2 VOL% (35.7-47.0); Immature Granulocytes % 0.4 %; Immature Granulocytes Absolute 0.02 #; Lymphocytes # 1.4 10*3/uL (1.4-4.0); Lymphocytes % 26.3 % (21.3-54.2); Mean Corpuscular HGB Conc 28.2 GM/DL (32-36); Mean Corpuscular Volume 80.6 FL (87-102); Mean Platelet Volume 10.4 FL (9.6-12.0); Monocytes % 7.5 % (1.7-12.7); NRBC # 0.02 10*3/uL; Neutrophils % 62.2 % (38.7-73.9); Platelet Count 187 T/CUMM (130-400); Red Blood Count 3.25 MC/CUMM (3.8-5.5); Red Cell Distribution Width 17.7 % (9.3-17.3); White Blood Count 5.2 T/CUMM (4-12)
[2019-03-12 13:04] LABS: Hemoglobin 7.4 GM/DL (12.0-16.0)
[2019-03-12 13:58] LABS: Microcytosis 1+; Platelet Estimate Adequate; Stomatocytes Few
[2019-03-12 13:59] LABS: Polychromasia 1+
[2019-03-12 14:00] LABS: Anisocytosis 1+; Burr Cells Slight; Hypochromasia 1+; Poikilocytosis 1+
[2019-03-12] MEDS: MUPIROCIN 2% OINT 22 GM TUBE TOP SCH ×2 (15:29→20:58)
[2019-03-12] MEDS: PANTOPRAZOLE INJ 200 MG in SODIUM CHLORIDE 0.9% 250 ML IV SCH (20:52)
[2019-03-13 06:13] LABS: Basophils # 0.1 10*3/uL (0.0-0.2); Basophils % 1.1 % (0.0-0.8); Eosinophils # 0.2 10*3/uL (0.0-0.87); Eosinophils % 3.5 % (0.00-10.9); Hematocrit 27.2 VOL% (35.7-47.0); Hemoglobin 7.8 GM/DL (12.0-16.0); Immature Granulocytes % 0.5 %; Immature Granulocytes Absolute 0.03 #; Lymphocytes # 1.4 10*3/uL (1.4-4.0); Mean Corpuscular HGB Conc 28.7 GM/DL (32-36); Mean Corpuscular Volume 79.8 FL (87-102); Mean Platelet Volume 10.4 FL (9.6-12.0); Monocytes % 5.8 % (1.7-12.7); NRBC # 0.03 10*3/uL; Neutrophils % 67.1 % (38.7-73.9); Platelet Count 190 T/CUMM (130-400); Red Blood Count 3.41 MC/CUMM (3.8-5.5); Red Cell Distribution Width 18.5 % (9.3-17.3); White Blood Count 6.2 T/CUMM (4-12)
[2019-03-13 06:19] LABS: Calcium 7.9 MG/DL (8.5-10.1); Osmolality,Calculated 271.8 MOS/KG (273-304)
[2019-03-13 06:23] LABS: Hypochromasia 1+; Microcytosis Slight; Platelet Estimate Adequate
[2019-03-13] MEDS: INSULIN REGULAR 100 UNIT/ML SUBCUT SCH ×3 (06:29→17:50)
[2019-03-13] MEDS ORDERED: SODIUM CHLORIDE 0.9% 1,000 ML IV PRN (07:41)
[2019-03-13] MEDS: VENLAFAXINE XR 75 MG CAPSULE PO SCH (08:35)
[2019-03-13] MEDS: GABAPENTIN 300 MG CAPSULE PO SCH ×2 (08:35→20:40)
[2019-03-13] MEDS: SIMVASTATIN 20 MG TABLET PO SCH (08:35)
[2019-03-13] MEDS: CARBIDOPA/LEVODOPA 25-100 MG TABLET PO SCH (08:36)
[2019-03-13] MEDS: clonazePAM 0.5 MG TABLET PO SCH ×2 (08:36→20:40)
[2019-03-13] MEDS: GLIMEPIRIDE 4 MG TABLET PO SCH (08:36)
[2019-03-13] MEDS: POTASSIUM CHLORIDE 20 MEQ TABLET PO SCH ×2 (08:36→20:39)
[2019-03-13] MEDS: MUPIROCIN 2% OINT 22 GM TUBE TOP SCH (08:36)
[2019-03-13] MEDS ORDERED: PANTOPRAZOLE 40 MG TABLET PO SCH (09:00)
[2019-03-14] MEDS: INSULIN REGULAR 100 UNIT/ML SUBCUT SCH ×4 (00:28→17:25)
[2019-03-14 05:57] LABS: Osmolality,Calculated 272.7 MOS/KG (273-304)
[2019-03-14 06:03] LABS: Basophils # 0.1 10*3/uL (0.0-0.2); Basophils % 0.9 % (0.0-0.8); Eosinophils # 0.2 10*3/uL (0.0-0.87); Eosinophils % 3.3 % (0.00-10.9); Hematocrit 28.2 VOL% (35.7-47.0); Hemoglobin 8.1 GM/DL (12.0-16.0); Immature Granulocytes % 0.7 %; Immature Granulocytes Absolute 0.05 #; Lymphocytes # 1.4 10*3/uL (1.4-4.0); Lymphocytes % 21.2 % (21.3-54.2); Mean Corpuscular HGB Conc 28.7 GM/DL (32-36); Mean Corpuscular Volume 81.3 FL (87-102); Mean Platelet Volume 10.6 FL (9.6-12.0); Monocytes % 8.9 % (1.7-12.7); NRBC # 0.02 10*3/uL; Platelet Count 187 T/CUMM (130-400); Red Blood Count 3.47 MC/CUMM (3.8-5.5); Red Cell Distribution Width 19.1 % (9.3-17.3); White Blood Count 6.7 T/CUMM (4-12)
[2019-03-14 06:05] LABS: Hypochromasia 1+; Platelet Estimate Normal; Target Cells Few
[2019-03-14 06:06] LABS: Ovalocytes 1+
[2019-03-14] MEDS: MUPIROCIN 2% OINT 22 GM TUBE TOP SCH ×3 (06:47→21:37)
[2019-03-14] MEDS: LEVOTHYROXINE 25 MCG TABLET PO SCH (06:47)
[2019-03-14] MEDS ORDERED: IRON SUCROSE 300 MG in SODIUM CHLORIDE 0.9% 100 ML IV ONE (08:00)
[2019-03-14] MEDS: SODIUM CHLORIDE 0.45% 1,000 ML IV SCH (09:18)
[2019-03-14] MEDS: VENLAFAXINE XR 75 MG CAPSULE PO SCH (09:30)
[2019-03-14] MEDS: CARBIDOPA/LEVODOPA 25-100 MG TABLET PO SCH (09:31)
[2019-03-14] MEDS: POTASSIUM CHLORIDE 20 MEQ TABLET PO SCH ×2 (09:31→21:36)
[2019-03-14] MEDS: GABAPENTIN 300 MG CAPSULE PO SCH ×2 (09:31→21:37)
[2019-03-14] MEDS: clonazePAM 0.5 MG TABLET PO SCH ×2 (09:31→21:36)
[2019-03-14] MEDS: SIMVASTATIN 20 MG TABLET PO SCH (09:32)
[2019-03-14] MEDS: GLIMEPIRIDE 4 MG TABLET PO SCH (09:34)
[2019-03-15] MEDS: INSULIN REGULAR 100 UNIT/ML SUBCUT SCH ×3 (00:32→11:47)
[2019-03-15 05:52] LABS: Osmolality,Calculated 273.7 MOS/KG (273-304)
[2019-03-15] MEDS: SODIUM CHLORIDE 0.45% 1,000 ML IV SCH ×2 (06:41→06:58)
[2019-03-15 06:42] LABS: Basophils # 0.1 10*3/uL (0.0-0.2); Basophils % 0.9 % (0.0-0.8); Eosinophils # 0.2 10*3/uL (0.0-0.87); Eosinophils % 2.9 % (0.00-10.9); Hematocrit 28.5 VOL% (35.7-47.0); Immature Granulocytes % 1.3 %; Immature Granulocytes Absolute 0.09 #; Lymphocytes # 1.1 10*3/uL (1.4-4.0); Lymphocytes % 15.3 % (21.3-54.2); Mean Corpuscular HGB Conc 28.4 GM/DL (32-36); Mean Corpuscular Volume 81.7 FL (87-102); Mean Platelet Volume 10.4 FL (9.6-12.0); Monocytes % 4.7 % (1.7-12.7); NRBC # 0.02 10*3/uL; Neutrophils % 74.9 % (38.7-73.9); Platelet Count 193 T/CUMM (130-400); Red Blood Count 3.49 MC/CUMM (3.8-5.5); Red Cell Distribution Width 20.3 % (9.3-17.3)
[2019-03-15 06:45] LABS: Hemoglobin 8.1 GM/DL (12.0-16.0)
[2019-03-15 07:01] LABS: Hypochromasia 1+; Ovalocytes Slight; Platelet Estimate Adequate
[2019-03-15 07:02] LABS: Microcytosis Slight
[2019-03-15] MEDS: LEVOTHYROXINE 25 MCG TABLET PO SCH (07:04)
[2019-03-15] MEDS: CARBIDOPA/LEVODOPA 25-100 MG TABLET PO SCH (08:46)
[2019-03-15] MEDS: GLIMEPIRIDE 4 MG TABLET PO SCH (08:46)
[2019-03-15] MEDS: GABAPENTIN 300 MG CAPSULE PO SCH (08:46)
[2019-03-15] MEDS: VENLAFAXINE XR 75 MG CAPSULE PO SCH (08:46)
[2019-03-15] MEDS: POTASSIUM CHLORIDE 20 MEQ TABLET PO SCH (08:46)
[2019-03-15] MEDS: MUPIROCIN 2% OINT 22 GM TUBE TOP SCH (08:47)
[2019-03-15] MEDS: clonazePAM 0.5 MG TABLET PO SCH (08:47)
[2019-03-15] MEDS ORDERED: PANTOPRAZOLE 40 MG VIAL IV SCH (09:00)
[2019-03-15 11:43] VITALS: BP 116/67
[2019-03-15] MEDS ORDERED: SIMVASTATIN 20 MG TABLET PO SCH (21:00)
[2019-03-17 21:56] LABS: Saccharomyces cerevisiae IgA 22.7 U; Saccharomyces cerevisiae, IgG 55.1 U
== END 2019-03-15 13:41 | disposition home or self-care (01) | DRG 378 ==
LOC: N.5E 17:33 → SUATTDRO 17:33 → N.CC 17:40 → N.5E 03-12 14:05
PROVIDERS: ADMIT Internal Medicine; ATTEND Internal Medicine

== ENCOUNTER 2019-03-16 22:07 | Inpatient (IN) ==
[2019-03-17] MEDS ORDERED: ALBUTEROL/IPRATROPIUM 3 ML NEB RESP TX ONE (00:35)
[2019-03-17] MEDS ORDERED: NITROGLYCERIN SL 0.4 MG TABLET SL PRN (01:54)
[2019-03-17] MEDS ORDERED: ALBUTEROL 2.5 MG/3 ML NEB RESP TX PRN (01:59)
[2019-03-17] MEDS ORDERED: DEXTROSE 50% 25 GM/50 ML VIAL IV PRN (02:06)
[2019-03-17] MEDS ORDERED: GLUCAGON 1 MG VIAL IM PRN (02:06)
[2019-03-17] MEDS ORDERED: ACETAMINOPHEN 325 MG TABLET PO PRN (02:06)
[2019-03-17] MEDS ORDERED: ONDANSETRON 4 MG/2 ML VIAL IV PRN (02:06)
[2019-03-17] MEDS: LEVOFLOXACIN INJ 750 MG in PREMIX 1 EACH IV SCH (02:33)
[2019-03-17 02:41] LABS: Basophils # 0.1 10*3/uL (0.0-0.2); Basophils % 0.9 % (0.0-0.8); Eosinophils # 0.2 10*3/uL (0.0-0.87); Eosinophils % 1.7 % (0.00-10.9); Hemoglobin 7.6 GM/DL (12.0-16.0); Immature Granulocytes % 1.3 %; Immature Granulocytes Absolute 0.15 #; Mean Corpuscular HGB Conc 27.9 GM/DL (32-36); Mean Corpuscular Volume 84.5 FL (87-102); Mean Platelet Volume 9.5 FL (9.6-12.0); Monocytes % 4.1 % (1.7-12.7); NRBC # 0.02 10*3/uL; Platelet Count 190 T/CUMM (130-400); Red Blood Count 3.22 MC/CUMM (3.8-5.5); Red Cell Distribution Width 22.8 % (9.3-17.3); White Blood Count 11.9 T/CUMM (4-12)
[2019-03-17 02:42] LABS: Hematocrit 27.2 VOL% (35.7-47.0)
[2019-03-17 03:07] LABS: Alanine Aminotransferase < 9 U/L (13-56); Albumin 3.2 G/DL (3.4-5.0); Alkaline Phosphatase 196 U/L (45-117); Aspartate Amino Transferase 14 U/L (0-37); Blood Urea Nitrogen 12 MG/DL (7-18); Calcium 8.4 MG/DL (8.5-10.1); Glucose 119 MG/DL (74-106); Osmolality,Calculated 275.7 MOS/KG (273-304); Total Protein 7.3 G/DL (6.4-8.3)
[2019-03-17] MEDS: methylPREDNISolone SOD SUC 40 MG/1 ML VIAL IV SCH ×3 (03:10→17:36)
[2019-03-17] MEDS: PIPERACILLIN/TAZOBACTAM 3,375 MG in SODIUM CHLORIDE 0.9% 100 ML IV SCH ×3 (04:12→20:34)
[2019-03-17] MEDS: LEVOTHYROXINE 25 MCG TABLET PO SCH (06:01)
[2019-03-17] MEDS: ALBUTEROL/IPRATROPIUM 3 ML NEB RESP TX SCH ×3 (07:34→19:50)
[2019-03-17] MEDS: GABAPENTIN 300 MG CAPSULE PO SCH ×2 (09:34→20:35)
[2019-03-17] MEDS: PANTOPRAZOLE 40 MG TABLET PO SCH (09:36)
[2019-03-17] MEDS: clonazePAM 0.5 MG TABLET PO SCH ×2 (09:36→20:35)
[2019-03-17] MEDS: POTASSIUM CHLORIDE 20 MEQ TABLET PO SCH ×2 (09:36→20:34)
[2019-03-17] MEDS: DOCUSATE SODIUM 100 MG CAPSULE PO PRN (09:36)
[2019-03-17] MEDS: CARBIDOPA/LEVODOPA 25-100 MG TABLET PO SCH (09:36)
[2019-03-17] MEDS: FUROSEMIDE 40 MG/4 ML VIAL IV SCH ×2 (09:37→17:36)
[2019-03-17] MEDS: ASPIRIN CHEW 81 MG TABLET PO SCH (09:37)
[2019-03-17] MEDS: CARVEDILOL 12.5 MG TABLET PO SCH ×2 (09:37→17:36)
[2019-03-17] MEDS: VENLAFAXINE XR 75 MG CAPSULE PO SCH (09:37)
[2019-03-17] MEDS: GLIMEPIRIDE 4 MG TABLET PO SCH (09:38)
[2019-03-17] MEDS: INSULIN LISPRO 100 UNIT/ML SUBCUT SCH ×4 (09:42→20:38)
[2019-03-17] MEDS: MUPIROCIN 2% OINT 22 GM TUBE TOP SCH ×2 (17:35→20:43)
[2019-03-17] MEDS: SIMVASTATIN 20 MG TABLET PO SCH (20:35)
[2019-03-18] MEDS: LEVOFLOXACIN INJ 750 MG in PREMIX 1 EACH IV SCH (01:15)
[2019-03-18] MEDS: ALBUTEROL/IPRATROPIUM 3 ML NEB RESP TX SCH ×4 (01:23→19:11)
[2019-03-18] MEDS: methylPREDNISolone SOD SUC 40 MG/1 ML VIAL IV SCH ×4 (02:18→19:42)
[2019-03-18] MEDS: PIPERACILLIN/TAZOBACTAM 3,375 MG in SODIUM CHLORIDE 0.9% 100 ML IV SCH ×3 (03:01→21:23)
[2019-03-18 04:59] LABS: Calcium 8.5 MG/DL (8.5-10.1); Osmolality,Calculated 280.1 MOS/KG (273-304)
[2019-03-18 05:47] LABS: Basophils % 0.1 % (0.0-0.8); Hematocrit 26.4 VOL% (35.7-47.0); Hemoglobin 7.3 GM/DL (12.0-16.0); Immature Granulocytes % 1.8 %; Immature Granulocytes Absolute 0.15 #; Lymphocytes # 0.5 10*3/uL (1.4-4.0); Lymphocytes % 5.7 % (21.3-54.2); Mean Corpuscular HGB Conc 27.7 GM/DL (32-36); Mean Corpuscular Volume 84.9 FL (87-102); Mean Platelet Volume 9.8 FL (9.6-12.0); Monocytes % 2.5 % (1.7-12.7); Neutrophils % 89.9 % (38.7-73.9); Platelet Count 182 T/CUMM (130-400); Red Blood Count 3.11 MC/CUMM (3.8-5.5); Red Cell Distribution Width 23.4 % (9.3-17.3); White Blood Count 8.3 T/CUMM (4-12)
[2019-03-18] MEDS: LEVOTHYROXINE 25 MCG TABLET PO SCH (06:48)
[2019-03-18] MEDS: INSULIN LISPRO 100 UNIT/ML SUBCUT SCH ×4 (08:00→21:22)
[2019-03-18] MEDS: ASPIRIN CHEW 81 MG TABLET PO SCH (09:51)
[2019-03-18] MEDS: GABAPENTIN 300 MG CAPSULE PO SCH ×2 (09:51→21:22)
[2019-03-18] MEDS: PANTOPRAZOLE 40 MG TABLET PO SCH (09:51)
[2019-03-18] MEDS: clonazePAM 0.5 MG TABLET PO SCH ×2 (09:52→21:22)
[2019-03-18] MEDS: CARVEDILOL 12.5 MG TABLET PO SCH ×2 (09:52→16:43)
[2019-03-18] MEDS: CARBIDOPA/LEVODOPA 25-100 MG TABLET PO SCH (09:52)
[2019-03-18] MEDS: GLIMEPIRIDE 4 MG TABLET PO SCH (09:52)
[2019-03-18] MEDS: FUROSEMIDE 40 MG/4 ML VIAL IV SCH ×2 (09:52→16:43)
[2019-03-18] MEDS: POTASSIUM CHLORIDE 20 MEQ TABLET PO SCH ×2 (09:52→21:22)
[2019-03-18] MEDS: VENLAFAXINE XR 75 MG CAPSULE PO SCH (09:54)
[2019-03-18] MEDS: MUPIROCIN 2% OINT 22 GM TUBE TOP SCH ×2 (09:55→21:22)
[2019-03-18] MEDS: SIMVASTATIN 20 MG TABLET PO SCH (21:22)
[2019-03-19] MEDS: ALBUTEROL/IPRATROPIUM 3 ML NEB RESP TX SCH ×7 (00:13→23:30)
[2019-03-19] MEDS: methylPREDNISolone SOD SUC 40 MG/1 ML VIAL IV SCH ×3 (01:32→17:55)
[2019-03-19] MEDS: LEVOFLOXACIN INJ 750 MG in PREMIX 1 EACH IV SCH (01:37)
[2019-03-19] MEDS: PIPERACILLIN/TAZOBACTAM 3,375 MG in SODIUM CHLORIDE 0.9% 100 ML IV SCH ×3 (03:51→21:58)
[2019-03-19] MEDS: LEVOTHYROXINE 25 MCG TABLET PO SCH (05:40)
[2019-03-19 06:11] LABS: Calcium 8.6 MG/DL (8.5-10.1); Osmolality,Calculated 283.5 MOS/KG (273-304)
[2019-03-19 06:30] LABS: Basophils % 0.1 % (0.0-0.8); Immature Granulocytes % 0.8 %; Immature Granulocytes Absolute 0.08 #; Lymphocytes # 0.4 10*3/uL (1.4-4.0); Lymphocytes % 4.1 % (21.3-54.2); Mean Corpuscular HGB Conc 27.1 GM/DL (32-36); Mean Platelet Volume 9.9 FL (9.6-12.0); Monocytes % 3.3 % (1.7-12.7); Neutrophils % 91.7 % (38.7-73.9); Platelet Count 173 T/CUMM (130-400); Red Blood Count 3.22 MC/CUMM (3.8-5.5); Red Cell Distribution Width 24.4 % (9.3-17.3); White Blood Count 9.6 T/CUMM (4-12)
[2019-03-19 06:35] LABS: Hemoglobin 7.6 GM/DL (12.0-16.0)
[2019-03-19 06:57] LABS: Lymphocytes 1 % (20-55); Segmented Neutrophils 95 % (50-85); Total Cells Counted 100
[2019-03-19 06:58] LABS: Anisocytosis 1+; Microcytosis 2+; Polychromasia Slight
[2019-03-19 06:59] LABS: Platelet Estimate Normal; Stomatocytes Slight
[2019-03-19] MEDS: clonazePAM 0.5 MG TABLET PO SCH ×2 (09:12→22:00)
[2019-03-19] MEDS: VENLAFAXINE XR 75 MG CAPSULE PO SCH (09:12)
[2019-03-19] MEDS: PANTOPRAZOLE 40 MG TABLET PO SCH (09:13)
[2019-03-19] MEDS: ASPIRIN CHEW 81 MG TABLET PO SCH (09:13)
[2019-03-19] MEDS: POTASSIUM CHLORIDE 20 MEQ TABLET PO SCH ×2 (09:13→22:00)
[2019-03-19] MEDS: FUROSEMIDE 40 MG/4 ML VIAL IV SCH ×2 (09:13→16:08)
[2019-03-19] MEDS: GLIMEPIRIDE 4 MG TABLET PO SCH (09:13)
[2019-03-19] MEDS: GABAPENTIN 300 MG CAPSULE PO SCH ×2 (09:13→22:00)
[2019-03-19] MEDS: CARBIDOPA/LEVODOPA 25-100 MG TABLET PO SCH (09:13)
[2019-03-19] MEDS: MUPIROCIN 2% OINT 22 GM TUBE TOP SCH ×2 (09:14→22:01)
[2019-03-19] MEDS: CARVEDILOL 12.5 MG TABLET PO SCH ×2 (09:14→16:08)
[2019-03-19] MEDS: INSULIN LISPRO 100 UNIT/ML SUBCUT SCH ×4 (10:49→22:01)
[2019-03-19] MEDS: SIMVASTATIN 20 MG TABLET PO SCH (22:00)
[2019-03-20] MEDS: methylPREDNISolone SOD SUC 40 MG/1 ML VIAL IV SCH ×3 (02:12→21:12)
[2019-03-20] MEDS: LEVOFLOXACIN INJ 750 MG in PREMIX 1 EACH IV SCH (02:16)
[2019-03-20] MEDS: ALBUTEROL/IPRATROPIUM 3 ML NEB RESP TX SCH ×6 (03:40→22:55)
[2019-03-20] MEDS: PIPERACILLIN/TAZOBACTAM 3,375 MG in SODIUM CHLORIDE 0.9% 100 ML IV SCH ×3 (03:49→21:11)
[2019-03-20] MEDS: LEVOTHYROXINE 25 MCG TABLET PO SCH (05:29)
[2019-03-20 05:42] LABS: Basophils % 0.1 % (0.0-0.8); Calcium 8.3 MG/DL (8.5-10.1); Hematocrit 28.1 VOL% (35.7-47.0); Hemoglobin 7.7 GM/DL (12.0-16.0); Immature Granulocytes % 0.6 %; Immature Granulocytes Absolute 0.05 #; Lymphocytes # 0.5 10*3/uL (1.4-4.0); Mean Corpuscular HGB Conc 27.4 GM/DL (32-36); Mean Corpuscular Volume 87.3 FL (87-102); Mean Platelet Volume 9.7 FL (9.6-12.0); Monocytes % 2.8 % (1.7-12.7); Neutrophils % 90.5 % (38.7-73.9); Osmolality,Calculated 281.4 MOS/KG (273-304); Platelet Count 159 T/CUMM (130-400); Red Blood Count 3.22 MC/CUMM (3.8-5.5); Red Cell Distribution Width 24.6 % (9.3-17.3); White Blood Count 8.9 T/CUMM (4-12)
[2019-03-20 06:36] LABS: Anisocytosis 2+; Macrocytosis 1+; Platelet Estimate Normal
[2019-03-20] MEDS: GLIMEPIRIDE 4 MG TABLET PO SCH (09:34)
[2019-03-20] MEDS: INSULIN LISPRO 100 UNIT/ML SUBCUT SCH ×4 (09:34→21:13)
[2019-03-20] MEDS: CARVEDILOL 12.5 MG TABLET PO SCH ×2 (09:51→17:02)
[2019-03-20] MEDS: CARBIDOPA/LEVODOPA 25-100 MG TABLET PO SCH (09:51)
[2019-03-20] MEDS: FUROSEMIDE 40 MG/4 ML VIAL IV SCH ×2 (09:51→17:02)
[2019-03-20] MEDS: VENLAFAXINE XR 75 MG CAPSULE PO SCH (09:51)
[2019-03-20] MEDS: clonazePAM 0.5 MG TABLET PO SCH ×2 (09:51→21:12)
[2019-03-20] MEDS: GABAPENTIN 300 MG CAPSULE PO SCH ×2 (09:51→21:12)
[2019-03-20] MEDS: ASPIRIN CHEW 81 MG TABLET PO SCH (09:52)
[2019-03-20] MEDS: POTASSIUM CHLORIDE 20 MEQ TABLET PO SCH ×2 (09:52→21:12)
[2019-03-20] MEDS: MUPIROCIN 2% OINT 22 GM TUBE TOP SCH ×2 (09:53→21:13)
[2019-03-20] MEDS: PANTOPRAZOLE 40 MG TABLET PO SCH (09:53)
[2019-03-20] MEDS: SIMVASTATIN 20 MG TABLET PO SCH (21:12)
[2019-03-21] MEDS: ALBUTEROL/IPRATROPIUM 3 ML NEB RESP TX SCH ×6 (01:59→23:38)
[2019-03-21] MEDS: LEVOFLOXACIN INJ 750 MG in PREMIX 1 EACH IV SCH (03:35)
[2019-03-21] MEDS: PIPERACILLIN/TAZOBACTAM 3,375 MG in SODIUM CHLORIDE 0.9% 100 ML IV SCH ×3 (05:30→20:42)
[2019-03-21 05:56] LABS: Calcium 8.4 MG/DL (8.5-10.1); Osmolality,Calculated 284.4 MOS/KG (273-304)
[2019-03-21] MEDS: LEVOTHYROXINE 25 MCG TABLET PO SCH (06:02)
[2019-03-21 06:20] LABS: Hematocrit 28.4 VOL% (35.7-47.0); Hemoglobin 7.8 GM/DL (12.0-16.0); Immature Granulocytes % 1.4 %; Immature Granulocytes Absolute 0.09 #; Lymphocytes # 0.5 10*3/uL (1.4-4.0); Lymphocytes % 7.6 % (21.3-54.2); Mean Corpuscular HGB Conc 27.5 GM/DL (32-36); Mean Corpuscular Volume 87.9 FL (87-102); Mean Platelet Volume 10.1 FL (9.6-12.0); Monocytes % 3.7 % (1.7-12.7); Neutrophils % 87.3 % (38.7-73.9); Platelet Count 149 T/CUMM (130-400); Red Blood Count 3.23 MC/CUMM (3.8-5.5); Red Cell Distribution Width 24.4 % (9.3-17.3); White Blood Count 6.5 T/CUMM (4-12)
[2019-03-21] MEDS: INSULIN LISPRO 100 UNIT/ML SUBCUT SCH ×4 (07:42→20:43)
[2019-03-21] MEDS: FUROSEMIDE 40 MG/4 ML VIAL IV SCH ×2 (09:46→17:45)
[2019-03-21] MEDS: POTASSIUM CHLORIDE 20 MEQ TABLET PO SCH ×2 (09:47→20:43)
[2019-03-21] MEDS: methylPREDNISolone SOD SUC 40 MG/1 ML VIAL IV SCH ×2 (09:47→20:42)
[2019-03-21] MEDS: MUPIROCIN 2% OINT 22 GM TUBE TOP SCH ×2 (09:47→20:44)
[2019-03-21] MEDS: ASPIRIN CHEW 81 MG TABLET PO SCH (09:47)
[2019-03-21] MEDS: PANTOPRAZOLE 40 MG TABLET PO SCH (09:48)
[2019-03-21] MEDS: clonazePAM 0.5 MG TABLET PO SCH ×2 (09:48→20:43)
[2019-03-21] MEDS: CARVEDILOL 12.5 MG TABLET PO SCH ×2 (09:48→17:45)
[2019-03-21] MEDS: GABAPENTIN 300 MG CAPSULE PO SCH ×2 (09:48→20:43)
[2019-03-21] MEDS: VENLAFAXINE XR 75 MG CAPSULE PO SCH (09:48)
[2019-03-21] MEDS: CARBIDOPA/LEVODOPA 25-100 MG TABLET PO SCH (09:48)
[2019-03-21] MEDS: SIMVASTATIN 20 MG TABLET PO SCH (20:44)
[2019-03-22] MEDS: LEVOFLOXACIN INJ 750 MG in PREMIX 1 EACH IV SCH (02:41)
[2019-03-22] MEDS: ALBUTEROL/IPRATROPIUM 3 ML NEB RESP TX SCH ×3 (02:59→11:20)
[2019-03-22 04:52] LABS: Hematocrit 28.5 VOL% (35.7-47.0); Immature Granulocytes % 0.8 %; Immature Granulocytes Absolute 0.05 #; Lymphocytes # 0.5 10*3/uL (1.4-4.0); Lymphocytes % 8.6 % (21.3-54.2); Mean Corpuscular HGB Conc 27.4 GM/DL (32-36); Mean Corpuscular Volume 88.2 FL (87-102); Mean Platelet Volume 10.2 FL (9.6-12.0); Monocytes % 2.8 % (1.7-12.7); Neutrophils % 87.8 % (38.7-73.9); Platelet Count 144 T/CUMM (130-400); Red Blood Count 3.23 MC/CUMM (3.8-5.5); Red Cell Distribution Width 24.1 % (9.3-17.3); White Blood Count 6.1 T/CUMM (4-12)
[2019-03-22] MEDS: PIPERACILLIN/TAZOBACTAM 3,375 MG in SODIUM CHLORIDE 0.9% 100 ML IV SCH (04:53)
[2019-03-22 05:16] LABS: Calcium 8.5 MG/DL (8.5-10.1); Osmolality,Calculated 289.4 MOS/KG (273-304)
[2019-03-22 05:20] LABS: Anisocytosis 2+; Hypochromasia 1+; Microcytosis 1+
[2019-03-22 05:22] LABS: Ovalocytes Slight; Stomatocytes Slight
[2019-03-22 05:23] LABS: Hemoglobin 7.9 GM/DL (12.0-16.0); Polychromasia Few
[2019-03-22 05:24] LABS: Platelet Estimate Normal
[2019-03-22] MEDS: LEVOTHYROXINE 25 MCG TABLET PO SCH (06:15)
[2019-03-22 07:50] VITALS: BP 114/61
[2019-03-22] MEDS: GABAPENTIN 300 MG CAPSULE PO SCH (09:32)
[2019-03-22] MEDS: MUPIROCIN 2% OINT 22 GM TUBE TOP SCH (09:33)
[2019-03-22] MEDS: ASPIRIN CHEW 81 MG TABLET PO SCH (09:33)
[2019-03-22] MEDS: VENLAFAXINE XR 75 MG CAPSULE PO SCH (09:33)
[2019-03-22] MEDS: DOCUSATE SODIUM 100 MG CAPSULE PO PRN (09:33)
[2019-03-22] MEDS: clonazePAM 0.5 MG TABLET PO SCH (09:33)
[2019-03-22] MEDS: PANTOPRAZOLE 40 MG TABLET PO SCH (09:33)
[2019-03-22] MEDS: POTASSIUM CHLORIDE 20 MEQ TABLET PO SCH (09:33)
[2019-03-22] MEDS: FUROSEMIDE 40 MG/4 ML VIAL IV SCH (09:34)
[2019-03-22] MEDS: methylPREDNISolone SOD SUC 40 MG/1 ML VIAL IV SCH (09:34)
[2019-03-22] MEDS: CARVEDILOL 12.5 MG TABLET PO SCH (09:34)
[2019-03-22] MEDS: CARBIDOPA/LEVODOPA 25-100 MG TABLET PO SCH (09:34)
== END 2019-03-22 13:25 | disposition home health service (06) | DRG 871 ==
LOC: SUATTDRO 03-17 00:12 → N.5E 03-17 00:12
PROVIDERS: ADMIT Internal Medicine; ATTEND Internal Medicine

== ENCOUNTER 2022-07-22 16:06 | Inpatient (IN) ==
[2022-07-22 17:45] LABS: NRBC # 0.02 10*3/uL
[2022-07-22 18:07] LABS: Alanine Aminotransferase 12 U/L (13-56); Alkaline Phosphatase 148 U/L (45-117); Aspartate Amino Transferase 20 U/L (0-37); Blood Urea Nitrogen 17 MG/DL (7-18); Calcium 8.6 MG/DL (8.5-10.1); Carbon Dioxide 34 MMOL/L (21-32); Chloride 102 MMOL/L (98-107); Glucose 155 MG/DL (74-106); Osmolality,Calculated 279.7 MOS/KG (273-304); Potassium 4.5 MMOL/L (3.5-5.1); Sodium 138 MMOL/L (136-145); Total Protein 7.8 G/DL (6.4-8.2)
[2022-07-22 18:08] LABS: INR 1.2
[2022-07-22 18:18] LABS: Basophils # 0.1 10*3/uL (0.0-0.2); Basophils % 1.5 % (0.0-0.8); Eosinophils # 0.3 10*3/uL (0.0-0.87); Eosinophils % 3.9 % (0.00-10.9); Hemoglobin 12.7 GM/DL (12.0-16.0); Immature Granulocytes % 1.2 %; Immature Granulocytes Absolute 0.08 #; Lymphocytes # 0.9 10*3/uL (1.4-4.0); Mean Corpuscular HGB Conc 30.2 GM/DL (32-36); Mean Corpuscular Volume 103.4 FL (87-102); Mean Platelet Volume 9.9 FL (9.6-12.0); Monocytes # 0.6 10*3/uL (0.11-0.8); Monocytes % 9.7 % (1.7-12.7); Neutrophils % 69.7 % (38.7-73.9); Platelet Count 161 T/CUMM (130-400); Red Blood Count 4.06 MC/CUMM (3.8-5.5); Red Cell Distribution Width 15.6 % (9.3-17.3); White Blood Count 6.6 T/CUMM (4-12)
[2022-07-22] MEDS ORDERED: FUROSEMIDE 100 MG/10 ML VIAL IV STA (18:26)
[2022-07-22] MEDS ORDERED: ONDANSETRON 4 MG/2 ML VIAL IV STA (18:26)
[2022-07-22] MEDS ORDERED: methylPREDNISolone SOD SUC 125 MG/2 ML VIAL IV STA (18:26)
[2022-07-22] MEDS ORDERED: ALBUTEROL/IPRATROPIUM 3 ML NEB RESP TX STA (18:26)
[2022-07-22] MEDS ORDERED: ALBUTEROL NEB SOLN 5 MG/ML 20 ML/BOTTLE CONT NEB SCH (18:30)
[2022-07-22 18:51] LABS: Arterial Base Excess iSTAT 7 MMOL/L (-2.5-2.5); Arterial O2 Saturation iSTAT 92 % (95-100); Arterial PCO2 iSTAT 68 MM HG (35-48); Arterial PO2 iSTAT 71 MM HG (80-95); Arterial Total CO2 iSTAT 37 MMO/L (23-27); Arterial pH iSTAT 7.318 (7.35-7.45)
[2022-07-22] MEDS ORDERED: ENOXAPARIN 120 MG/0.8 ML SYRINGE SUBCUT STA (21:10)
[2022-07-22 21:29] LABS: Bacteria,Urine Occasional /HPF (Few); Hyaline Casts,Urine 11 /LPF (0-3); Mucus,Urine Occasional /LPF (Occasional); RBC,Urine <1 /HPF (0-4); Squamous Epithelial Cell,Urine Occasional /HPF (0-10)
[2022-07-22 21:30] LABS: Bilirubin,Urine Negative (Negative); Blood, Urine Negative (Negative); Glucose,Urine (UA) Negative (Negative); Ketones,Urine Negative (Negative); Nitrite,Urine Negative (Negative); Protein,Urine Negative (Negative); Urine Appearance Clear (Clear); Urine Color Yellow (Yellow); Urine Specific Gravity 1.015 (1.001-1.035)
[2022-07-22] MEDS ORDERED: NICOTINE 21 MG/24 HR PATCH TRANSDERM PRN (23:44)
[2022-07-22] MEDS ORDERED: ACETAMINOPHEN 325 MG TABLET PO PRN (23:44)
[2022-07-22] MEDS ORDERED: DEXTROSE 10% 250 ML BAG IV PRN (23:44)
[2022-07-22] MEDS ORDERED: diphenhydrAMINE CAP 25 MG CAPSULE PO PRN (23:44)
[2022-07-22] MEDS ORDERED: ZALEPLON 5 MG CAPSULE PO PRN (23:44)
[2022-07-22] MEDS ORDERED: hydrALAZINE 20 MG/1 ML VIAL IV PRN (23:44)
[2022-07-22] MEDS ORDERED: ONDANSETRON 4 MG/2 ML VIAL IV PRN (23:44)
[2022-07-22] MEDS ORDERED: guaiFENesin/DM ER 600-30 MG TABLET PO PRN (23:44)
[2022-07-22] MEDS ORDERED: GLUCAGON 1 MG VIAL IM PRN ×2 (23:44)
[2022-07-22] MEDS ORDERED: DEXTROSE 50% 25 GM/50 ML VIAL IV PRN (23:44)
[2022-07-23] MEDS: methylPREDNISolone SOD SUC 40 MG/1 ML VIAL IV SCH ×3 (02:40→19:14)
[2022-07-23] MEDS: AZITHROMYCIN INJ 500 MG in SODIUM CHLORIDE 0.9% 250 ML IV SCH (02:41)
[2022-07-23 03:13] LABS: Basophils % 0.7 % (0.0-0.8); Eosinophils % 0.2 % (0.00-10.9); Hematocrit 41.9 VOL% (35.7-47.0); Hemoglobin 12.6 GM/DL (12.0-16.0); Immature Granulocytes % 1.3 %; Immature Granulocytes Absolute 0.08 #; Lymphocytes # 0.3 10*3/uL (1.4-4.0); Lymphocytes % 5.4 % (21.3-54.2); Mean Corpuscular HGB Conc 30.1 GM/DL (32-36); Mean Corpuscular Volume 104.5 FL (87-102); Mean Platelet Volume 9.6 FL (9.6-12.0); Monocytes % 0.7 % (1.7-12.7); Neutrophils % 91.7 % (38.7-73.9); Platelet Count 154 T/CUMM (130-400); Red Blood Count 4.01 MC/CUMM (3.8-5.5); Red Cell Distribution Width 15.4 % (9.3-17.3)
[2022-07-23 03:34] LABS: Eosinophils 2 % (0-10); Lymphocytes 3 % (20-55); Total Cells Counted 100
[2022-07-23 03:35] LABS: Macrocytosis Slight; Platelet Estimate Adequate
[2022-07-23 03:49] LABS: Calcium 8.4 MG/DL (8.5-10.1); Osmolality,Calculated 283.5 MOS/KG (273-304); Potassium 4.9 MMOL/L (3.5-5.1)
[2022-07-23] MEDS: ALBUTEROL/IPRATROPIUM 3 ML NEB RESP TX SCH ×4 (07:50→19:33)
[2022-07-23] MEDS: INSULIN LISPRO 100 UNIT/ML SUBCUT SCH ×4 (08:12→22:38)
[2022-07-23] MEDS ORDERED: ENOXAPARIN 150 MG/ML SYRINGE SUBCUT SCH (09:00)
[2022-07-23] MEDS: FUROSEMIDE 40 MG/4 ML VIAL IV SCH ×2 (09:05→17:47)
[2022-07-23] MEDS: PANTOPRAZOLE 40 MG TABLET PO SCH (12:58)
[2022-07-23 15:51] LABS: Arterial Base Excess iSTAT 5 MMOL/L (-2.5-2.5); Arterial Bicarbonate iSTAT 33.5 MMOL/L (20-26); Arterial O2 Saturation iSTAT 94 % (95-100); Arterial PCO2 iSTAT 66 MM HG (35-48); Arterial PO2 iSTAT 81 MM HG (80-95); Arterial Total CO2 iSTAT 35 MMO/L (23-27); Arterial pH iSTAT 7.316 (7.35-7.45)
[2022-07-23] MEDS: GABAPENTIN 400 MG CAPSULE PO SCH ×2 (17:45→21:07)
[2022-07-23] MEDS: ASPIRIN EC 81 MG TABLET PO SCH (17:45)
[2022-07-23 18:42] LABS: Arterial Base Excess iSTAT 6 MMOL/L (-2.5-2.5); Arterial Bicarbonate iSTAT 34.7 MMOL/L (20-26); Arterial O2 Saturation iSTAT 98 % (95-100); Arterial PCO2 iSTAT 70 MM HG (35-48); Arterial PO2 iSTAT 118 MM HG (80-95); Arterial Total CO2 iSTAT 37 MMO/L (23-27); Arterial pH iSTAT 7.301 (7.35-7.45)
[2022-07-23] MEDS ORDERED: carvediloL 3.125 MG TABLET PO SCH (21:00)
[2022-07-23] MEDS ORDERED: INSULIN GLARGINE 100 UNIT/ML SUBCUT SCH (21:00)
[2022-07-23] MEDS: NYSTATIN CREAM 15 GM TUBE TOP SCH (21:04)
[2022-07-23] MEDS: ATORVASTATIN 20 MG TABLET PO SCH (21:07)
[2022-07-23] MEDS: ISOSORBIDE MONONITRATE 20 MG TABLET PO SCH (21:08)
[2022-07-23] MEDS: CARBIDOPA/LEVODOPA 25-100 MG TABLET PO SCH (21:08)
[2022-07-24] MEDS: ALBUTEROL/IPRATROPIUM 3 ML NEB RESP TX SCH ×4 (00:20→19:11)
[2022-07-24] MEDS: AZITHROMYCIN INJ 500 MG in SODIUM CHLORIDE 0.9% 250 ML IV SCH (03:02)
[2022-07-24] MEDS: methylPREDNISolone SOD SUC 40 MG/1 ML VIAL IV SCH ×3 (03:02→18:54)
[2022-07-24 05:27] LABS: Osmolality,Calculated 279.1 MOS/KG (273-304)
[2022-07-24 05:29] LABS: Risk Ratio 3.15; VLDL Cholesterol 22.8 MG/DL
[2022-07-24 05:32] LABS: Hematocrit 37.9 VOL% (35.7-47.0); Hemoglobin 11.5 GM/DL (12.0-16.0); Immature Granulocytes % 0.8 %; Immature Granulocytes Absolute 0.07 #; Lymphocytes # 0.3 10*3/uL (1.4-4.0); Lymphocytes % 3.6 % (21.3-54.2); Mean Corpuscular HGB Conc 30.3 GM/DL (32-36); Mean Corpuscular Volume 103.8 FL (87-102); Mean Platelet Volume 9.9 FL (9.6-12.0); Monocytes # 0.3 10*3/uL (0.11-0.8); Monocytes % 3.4 % (1.7-12.7); Neutrophils % 92.2 % (38.7-73.9); Platelet Count 173 T/CUMM (130-400); Red Blood Count 3.65 MC/CUMM (3.8-5.5); Red Cell Distribution Width 15.3 % (9.3-17.3); White Blood Count 8.6 T/CUMM (4-12)
[2022-07-24 05:41] LABS: Lymphocytes 4 % (20-55); Macrocytosis Slight; Polychromasia Slight; Total Cells Counted 100
[2022-07-24 06:04] LABS: Alanine Aminotransferase < 9 U/L (13-56); Albumin 2.8 G/DL (3.4-5.0); Alkaline Phosphatase 124 U/L (45-117); Aspartate Amino Transferase 22 U/L (0-37); Blood Urea Nitrogen 24 MG/DL (7-18); Calcium 8.8 MG/DL (8.5-10.1); Carbon Dioxide 26 MMOL/L (21-32); Chloride 101 MMOL/L (98-107); Glucose 197 MG/DL (74-106); Osmolality,Calculated 274.4 MOS/KG (273-304); Sodium 133 MMOL/L (136-145); Total Protein 7.4 G/DL (6.4-8.2)
[2022-07-24] MEDS: LEVOTHYROXINE 150 MCG TABLET PO SCH (06:49)
[2022-07-24 08:03] LABS: Arterial Base Excess iSTAT 6 MMOL/L (-2.5-2.5); Arterial Bicarbonate iSTAT 33.7 MMOL/L (20-26); Arterial O2 Saturation iSTAT 98 % (95-100); Arterial PCO2 iSTAT 65 MM HG (35-48); Arterial PO2 iSTAT 127 MM HG (80-95); Arterial Total CO2 iSTAT 36 MMO/L (23-27); Arterial pH iSTAT 7.325 (7.35-7.45)
[2022-07-24] MEDS: FUROSEMIDE 40 MG/4 ML VIAL IV SCH ×2 (09:10→17:02)
[2022-07-24] MEDS: INSULIN LISPRO 100 UNIT/ML SUBCUT SCH ×4 (09:15→21:44)
[2022-07-24] MEDS: GABAPENTIN 400 MG CAPSULE PO SCH ×4 (09:16→21:23)
[2022-07-24] MEDS: SERTRALINE 50 MG TABLET PO SCH (09:21)
[2022-07-24] MEDS: NYSTATIN CREAM 15 GM TUBE TOP SCH ×2 (09:21→21:24)
[2022-07-24] MEDS: ASPIRIN EC 81 MG TABLET PO SCH ×2 (09:21→10:07)
[2022-07-24] MEDS: carvediloL 3.125 MG TABLET PO SCH ×2 (09:21→21:23)
[2022-07-24] MEDS: ISOSORBIDE MONONITRATE 20 MG TABLET PO SCH ×2 (09:21→21:24)
[2022-07-24] MEDS: FERROUS SULFATE 325 MG TABLET PO SCH (09:21)
[2022-07-24] MEDS: PANTOPRAZOLE 40 MG TABLET PO SCH (09:21)
[2022-07-24] MEDS ORDERED: INSULIN GLARGINE 100 UNIT/ML SUBCUT SCH (21:00)
[2022-07-24] MEDS: CARBIDOPA/LEVODOPA 25-100 MG TABLET PO SCH (21:23)
[2022-07-24] MEDS: ATORVASTATIN 20 MG TABLET PO SCH (21:24)
[2022-07-25] MEDS: ALBUTEROL/IPRATROPIUM 3 ML NEB RESP TX SCH ×4 (00:17→19:05)
[2022-07-25] MEDS: methylPREDNISolone SOD SUC 40 MG/1 ML VIAL IV SCH ×3 (02:00→18:38)
[2022-07-25] MEDS: AZITHROMYCIN INJ 500 MG in SODIUM CHLORIDE 0.9% 250 ML IV SCH (03:01)
[2022-07-25 05:45] LABS: Basophils % 0.1 % (0.0-0.8); Eosinophils % 0.1 % (0.00-10.9); Hemoglobin 12.2 GM/DL (12.0-16.0); Immature Granulocytes % 0.5 %; Immature Granulocytes Absolute 0.04 #; Lymphocytes # 0.3 10*3/uL (1.4-4.0); Lymphocytes % 3.7 % (21.3-54.2); Mean Corpuscular HGB Conc 29.9 GM/DL (32-36); Mean Platelet Volume 10.1 FL (9.6-12.0); Monocytes # 0.3 10*3/uL (0.11-0.8); Monocytes % 3.1 % (1.7-12.7); Neutrophils % 92.5 % (38.7-73.9); Platelet Count 142 T/CUMM (130-400); Red Blood Count 3.85 MC/CUMM (3.8-5.5); Red Cell Distribution Width 15.3 % (9.3-17.3); White Blood Count 8.6 T/CUMM (4-12)
[2022-07-25 05:47] LABS: Hematocrit 40.8 VOL% (35.7-47.0)
[2022-07-25] MEDS: LEVOTHYROXINE 150 MCG TABLET PO SCH (05:53)
[2022-07-25 06:01] LABS: Calcium 8.8 MG/DL (8.5-10.1); Osmolality,Calculated 276.7 MOS/KG (273-304); Potassium 5.1 MMOL/L (3.5-5.1)
[2022-07-25 06:29] LABS: Lymphocytes 4 % (20-55); Macrocytosis Slight; Platelet Estimate Adequate; Total Cells Counted 100
[2022-07-25] MEDS: INSULIN LISPRO 100 UNIT/ML SUBCUT SCH ×3 (08:32→17:10)
[2022-07-25] MEDS: GABAPENTIN 400 MG CAPSULE PO SCH ×4 (08:33→21:51)
[2022-07-25] MEDS: ISOSORBIDE MONONITRATE 20 MG TABLET PO SCH ×2 (08:33→21:51)
[2022-07-25] MEDS: ASPIRIN EC 81 MG TABLET PO SCH (08:33)
[2022-07-25] MEDS: FERROUS SULFATE 325 MG TABLET PO SCH (08:33)
[2022-07-25] MEDS: carvediloL 3.125 MG TABLET PO SCH ×2 (08:33→21:51)
[2022-07-25] MEDS: SERTRALINE 50 MG TABLET PO SCH (08:33)
[2022-07-25] MEDS: PANTOPRAZOLE 40 MG TABLET PO SCH (08:33)
[2022-07-25] MEDS: HEPARIN 5,000 UNIT/1 ML VIAL SUBCUT SCH ×2 (12:13→21:51)
[2022-07-25] MEDS: POLYETHYLENE GLYCOL POWDER 17 GM PACK PO SCH (12:14)
[2022-07-25] MEDS: NYSTATIN CREAM 15 GM TUBE TOP SCH ×2 (12:14→21:51)
[2022-07-25] MEDS ORDERED: INSULIN GLARGINE 100 UNIT/ML SUBCUT SCH (21:00)
[2022-07-25] MEDS: ATORVASTATIN 20 MG TABLET PO SCH (21:51)
[2022-07-25] MEDS: CARBIDOPA/LEVODOPA 25-100 MG TABLET PO SCH (21:51)
[2022-07-26] MEDS: ALBUTEROL/IPRATROPIUM 3 ML NEB RESP TX SCH ×4 (00:33→19:11)
[2022-07-26] MEDS: INSULIN LISPRO 100 UNIT/ML SUBCUT SCH ×5 (03:14→21:44)
[2022-07-26] MEDS: methylPREDNISolone SOD SUC 40 MG/1 ML VIAL IV SCH ×3 (04:05→17:27)
[2022-07-26] MEDS: AZITHROMYCIN INJ 500 MG in SODIUM CHLORIDE 0.9% 250 ML IV SCH (04:11)
[2022-07-26 04:30] LABS: Hematocrit 39.4 VOL% (35.7-47.0); Hemoglobin 11.8 GM/DL (12.0-16.0); Immature Granulocytes % 0.4 %; Immature Granulocytes Absolute 0.03 #; Lymphocytes # 0.3 10*3/uL (1.4-4.0); Lymphocytes % 3.9 % (21.3-54.2); Mean Corpuscular HGB Conc 29.9 GM/DL (32-36); Mean Corpuscular Volume 103.7 FL (87-102); Mean Platelet Volume 9.3 FL (9.6-12.0); Monocytes # 0.4 10*3/uL (0.11-0.8); Monocytes % 5.1 % (1.7-12.7); Neutrophils % 90.6 % (38.7-73.9); Platelet Count 141 T/CUMM (130-400); Red Cell Distribution Width 14.9 % (9.3-17.3); White Blood Count 7.6 T/CUMM (4-12)
[2022-07-26 04:51] LABS: Lymphocytes 3 % (20-55); Total Cells Counted 100
[2022-07-26 04:52] LABS: Hypochromia Slight; Macrocytosis Slight
[2022-07-26 04:53] LABS: Platelet Estimate Adequate; Polychromasia Slight
[2022-07-26 04:57] LABS: Albumin 2.8 G/DL (3.4-5.0); Bilirubin,Total 0.6 MG/DL (0.20-1.00); Osmolality,Calculated 288.1 MOS/KG (273-304); Potassium 5.1 MMOL/L (3.5-5.1); Total Protein 6.9 G/DL (6.4-8.2)
[2022-07-26] MEDS: LEVOTHYROXINE 150 MCG TABLET PO SCH (06:50)
[2022-07-26] MEDS: POLYETHYLENE GLYCOL POWDER 17 GM PACK PO SCH (09:21)
[2022-07-26] MEDS: FERROUS SULFATE 325 MG TABLET PO SCH (09:22)
[2022-07-26] MEDS: GABAPENTIN 400 MG CAPSULE PO SCH ×4 (09:23→21:43)
[2022-07-26] MEDS: SERTRALINE 50 MG TABLET PO SCH (09:23)
[2022-07-26] MEDS: ASPIRIN EC 81 MG TABLET PO SCH (09:23)
[2022-07-26] MEDS: PANTOPRAZOLE 40 MG TABLET PO SCH (09:23)
[2022-07-26] MEDS: carvediloL 3.125 MG TABLET PO SCH ×2 (09:24→21:46)
[2022-07-26] MEDS: ISOSORBIDE MONONITRATE 20 MG TABLET PO SCH ×2 (09:24→21:42)
[2022-07-26] MEDS ORDERED: FUROSEMIDE 40 MG/4 ML VIAL IV ONE ×2 (09:28→09:34)
[2022-07-26] MEDS: NYSTATIN CREAM 15 GM TUBE TOP SCH ×2 (09:32→21:50)
[2022-07-26] MEDS: LACTULOSE 20 GM/30 ML UDCUP PO SCH ×2 (10:27→21:43)
[2022-07-26] MEDS: HEPARIN 5,000 UNIT/1 ML VIAL SUBCUT SCH (10:28)
[2022-07-26] MEDS: THEOPHYLLINE ER (24 HR) 400 MG CAPSULE PO SCH (10:29)
[2022-07-26] MEDS ORDERED: TUBERCULIN SKIN TEST 0.1 ML SYRINGE INTRADERM ONE (11:04)
[2022-07-26 11:39] LABS: Amorphous Crystals,Urine Few /HPF (Few); Bacteria,Urine Moderate /HPF (Few); Mucus,Urine Occasional /LPF (Occasional); RBC,Urine 68 /HPF (0-4); Squamous Epithelial Cell,Urine Occasional /HPF (0-10)
[2022-07-26 11:40] LABS: Bilirubin,Urine Negative (Negative); Blood, Urine Large mg/dL (Negative); Glucose,Urine (UA) Negative (Negative); Ketones,Urine Negative (Negative); Nitrite,Urine Negative (Negative); Protein,Urine 30 mg/dL (Negative); Urine Appearance Cloudy (Clear); Urine Color Light Red (Yellow); Urine Specific Gravity 1.015 (1.001-1.035); Urine Urobilinogen 0.2 eU/dL (<2.0)
[2022-07-26] MEDS ORDERED: INSULIN GLARGINE 100 UNIT/ML SUBCUT SCH (21:00)
[2022-07-26] MEDS: ATORVASTATIN 20 MG TABLET PO SCH (21:42)
[2022-07-26] MEDS: CARBIDOPA/LEVODOPA 25-100 MG TABLET PO SCH (21:43)
[2022-07-27] MEDS: ALBUTEROL/IPRATROPIUM 3 ML NEB RESP TX SCH ×4 (00:02→19:04)
[2022-07-27] MEDS: AZITHROMYCIN INJ 500 MG in SODIUM CHLORIDE 0.9% 250 ML IV SCH (02:30)
[2022-07-27] MEDS: HEPARIN 5,000 UNIT/1 ML VIAL SUBCUT SCH ×3 (02:31→23:36)
[2022-07-27] MEDS: methylPREDNISolone SOD SUC 40 MG/1 ML VIAL IV SCH ×2 (04:22→10:05)
[2022-07-27 06:30] LABS: Basophils % 0.1 % (0.0-0.8); Hematocrit 41.2 VOL% (35.7-47.0); Hemoglobin 12.5 GM/DL (12.0-16.0); Immature Granulocytes % 0.8 %; Immature Granulocytes Absolute 0.06 #; Lymphocytes # 0.3 10*3/uL (1.4-4.0); Lymphocytes % 4.6 % (21.3-54.2); Mean Corpuscular HGB Conc 30.3 GM/DL (32-36); Monocytes # 0.5 10*3/uL (0.11-0.8); Monocytes % 6.4 % (1.7-12.7); Neutrophils % 88.1 % (38.7-73.9); Platelet Count 149 T/CUMM (130-400); Red Blood Count 4.04 MC/CUMM (3.8-5.5); Red Cell Distribution Width 14.7 % (9.3-17.3); White Blood Count 7.3 T/CUMM (4-12)
[2022-07-27 06:35] LABS: Folate 11.29 NG/ML (5.38-24.0)
[2022-07-27] MEDS: LEVOTHYROXINE 150 MCG TABLET PO SCH (06:36)
[2022-07-27 06:45] LABS: Albumin 2.9 G/DL (3.4-5.0); Bilirubin,Total 0.7 MG/DL (0.20-1.00); Calcium 9.7 MG/DL (8.5-10.1); Osmolality,Calculated 287.2 MOS/KG (273-304); Potassium 4.7 MMOL/L (3.5-5.1); Total Protein 7.3 G/DL (6.4-8.2)
[2022-07-27 07:21] LABS: Lymphocytes 2 % (20-55); Platelet Estimate Adequate; Total Cells Counted 100
[2022-07-27] MEDS ORDERED: FLUCONAZOLE 100 MG TABLET PO ONE (07:31)
[2022-07-27] MEDS ORDERED: FUROSEMIDE 40 MG/4 ML VIAL IV ONE (07:32)
[2022-07-27] MEDS: INSULIN LISPRO 100 UNIT/ML SUBCUT SCH ×4 (10:01→22:09)
[2022-07-27] MEDS: GABAPENTIN 400 MG CAPSULE PO SCH ×4 (10:03→22:07)
[2022-07-27] MEDS: carvediloL 3.125 MG TABLET PO SCH ×2 (10:03→22:08)
[2022-07-27] MEDS: FERROUS SULFATE 325 MG TABLET PO SCH (10:04)
[2022-07-27] MEDS: SERTRALINE 50 MG TABLET PO SCH (10:04)
[2022-07-27] MEDS: THEOPHYLLINE ER (24 HR) 400 MG CAPSULE PO SCH (10:04)
[2022-07-27] MEDS: ASPIRIN EC 81 MG TABLET PO SCH (10:04)
[2022-07-27] MEDS: PANTOPRAZOLE 40 MG TABLET PO SCH (10:04)
[2022-07-27] MEDS: POLYETHYLENE GLYCOL POWDER 17 GM PACK PO SCH (10:05)
[2022-07-27] MEDS: LACTULOSE 20 GM/30 ML UDCUP PO SCH ×2 (10:05→22:08)
[2022-07-27] MEDS: NYSTATIN CREAM 15 GM TUBE TOP SCH ×2 (10:06→23:36)
[2022-07-27] MEDS: ISOSORBIDE MONONITRATE 20 MG TABLET PO SCH ×2 (10:12→22:09)
[2022-07-27] MEDS ORDERED: FLUCONAZOLE 150 MG TABLET PO ONE (12:00)
[2022-07-27] MEDS ORDERED: methylPREDNISolone SOD SUC 40 MG/1 ML VIAL IV SCH (22:00)
[2022-07-27] MEDS: CARBIDOPA/LEVODOPA 25-100 MG TABLET PO SCH (22:08)
[2022-07-27] MEDS: ATORVASTATIN 20 MG TABLET PO SCH (22:08)
[2022-07-27] MEDS: INSULIN GLARGINE 100 UNIT/ML SUBCUT SCH (22:10)
[2022-07-28] MEDS: ALBUTEROL/IPRATROPIUM 3 ML NEB RESP TX SCH ×4 (01:08→19:17)
[2022-07-28 05:31] LABS: Basophils % 0.2 % (0.0-0.8); Hematocrit 40.3 VOL% (35.7-47.0); Hemoglobin 12.2 GM/DL (12.0-16.0); Immature Granulocytes % 0.9 %; Immature Granulocytes Absolute 0.05 #; Lymphocytes # 0.2 10*3/uL (1.4-4.0); Lymphocytes % 4.2 % (21.3-54.2); Mean Corpuscular HGB Conc 30.3 GM/DL (32-36); Mean Corpuscular Volume 102.3 FL (87-102); Mean Platelet Volume 9.7 FL (9.6-12.0); Monocytes # 0.3 10*3/uL (0.11-0.8); Monocytes % 4.7 % (1.7-12.7); Platelet Count 124 T/CUMM (130-400); Red Blood Count 3.94 MC/CUMM (3.8-5.5); Red Cell Distribution Width 14.4 % (9.3-17.3); White Blood Count 5.8 T/CUMM (4-12)
[2022-07-28 05:44] LABS: Calcium 9.5 MG/DL (8.5-10.1); Osmolality,Calculated 292.8 MOS/KG (273-304); Potassium 4.5 MMOL/L (3.5-5.1)
[2022-07-28] MEDS: LEVOTHYROXINE 150 MCG TABLET PO SCH (06:24)
[2022-07-28 07:25] LABS: Lymphocytes 3 % (20-55); Platelet Estimate Normal; Total Cells Counted 100
[2022-07-28] MEDS: THEOPHYLLINE ER (24 HR) 400 MG CAPSULE PO SCH (08:36)
[2022-07-28] MEDS: POLYETHYLENE GLYCOL POWDER 17 GM PACK PO SCH (08:36)
[2022-07-28] MEDS: PANTOPRAZOLE 40 MG TABLET PO SCH (08:36)
[2022-07-28] MEDS: carvediloL 3.125 MG TABLET PO SCH ×2 (08:36→22:10)
[2022-07-28] MEDS: ISOSORBIDE MONONITRATE 20 MG TABLET PO SCH ×2 (08:36→22:11)
[2022-07-28] MEDS: GABAPENTIN 400 MG CAPSULE PO SCH ×4 (08:37→22:09)
[2022-07-28] MEDS: ASPIRIN EC 81 MG TABLET PO SCH (08:37)
[2022-07-28] MEDS: SERTRALINE 50 MG TABLET PO SCH (08:37)
[2022-07-28] MEDS: FERROUS SULFATE 325 MG TABLET PO SCH (08:37)
[2022-07-28] MEDS: NYSTATIN CREAM 15 GM TUBE TOP SCH ×2 (08:37→22:11)
[2022-07-28] MEDS: LACTULOSE 20 GM/30 ML UDCUP PO SCH ×2 (08:37→22:09)
[2022-07-28] MEDS: INSULIN LISPRO 100 UNIT/ML SUBCUT SCH ×4 (09:40→22:10)
[2022-07-28] MEDS: HEPARIN 5,000 UNIT/1 ML VIAL SUBCUT SCH ×2 (10:37→22:26)
[2022-07-28] MEDS: methylPREDNISolone SOD SUC 40 MG/1 ML VIAL IV SCH (15:47)
[2022-07-28] MEDS: ATORVASTATIN 20 MG TABLET PO SCH (22:09)
[2022-07-28] MEDS: CARBIDOPA/LEVODOPA 25-100 MG TABLET PO SCH (22:10)
[2022-07-28] MEDS: INSULIN GLARGINE 100 UNIT/ML SUBCUT SCH (22:10)
[2022-07-29 04:41] LABS: Basophils % 0.3 % (0.0-0.8); Eosinophils % 0.1 % (0.00-10.9); Hematocrit 41.2 VOL% (35.7-47.0); Hemoglobin 12.4 GM/DL (12.0-16.0); Immature Granulocytes % 1.5 %; Immature Granulocytes Absolute 0.11 #; Lymphocytes # 0.4 10*3/uL (1.4-4.0); Lymphocytes % 5.4 % (21.3-54.2); Mean Corpuscular HGB Conc 30.1 GM/DL (32-36); Mean Corpuscular Volume 103.3 FL (87-102); Mean Platelet Volume 9.9 FL (9.6-12.0); Monocytes # 0.7 10*3/uL (0.11-0.8); Monocytes % 9.5 % (1.7-12.7); Neutrophils % 83.2 % (38.7-73.9); Platelet Count 141 T/CUMM (130-400); Red Blood Count 3.99 MC/CUMM (3.8-5.5); Red Cell Distribution Width 14.2 % (9.3-17.3); White Blood Count 7.4 T/CUMM (4-12)
[2022-07-29 05:10] LABS: Calcium 9.7 MG/DL (8.5-10.1); Osmolality,Calculated 292.7 MOS/KG (273-304); Potassium 4.3 MMOL/L (3.5-5.1)
[2022-07-29] MEDS: LEVOTHYROXINE 150 MCG TABLET PO SCH (05:47)
[2022-07-29] MEDS: ALBUTEROL/IPRATROPIUM 3 ML NEB RESP TX SCH ×4 (07:52→19:30)
[2022-07-29] MEDS: INSULIN LISPRO 100 UNIT/ML SUBCUT SCH ×4 (08:32→21:30)
[2022-07-29] MEDS: carvediloL 3.125 MG TABLET PO SCH ×2 (09:30→21:31)
[2022-07-29] MEDS: FERROUS SULFATE 325 MG TABLET PO SCH (09:30)
[2022-07-29] MEDS: POLYETHYLENE GLYCOL POWDER 17 GM PACK PO SCH (09:30)
[2022-07-29] MEDS: THEOPHYLLINE ER (24 HR) 400 MG CAPSULE PO SCH (09:30)
[2022-07-29] MEDS: LACTULOSE 20 GM/30 ML UDCUP PO SCH ×2 (09:30→21:31)
[2022-07-29] MEDS: ISOSORBIDE MONONITRATE 20 MG TABLET PO SCH ×2 (09:31→21:30)
[2022-07-29] MEDS: SERTRALINE 50 MG TABLET PO SCH (09:31)
[2022-07-29] MEDS: PANTOPRAZOLE 40 MG TABLET PO SCH (09:31)
[2022-07-29] MEDS: ASPIRIN EC 81 MG TABLET PO SCH (09:31)
[2022-07-29] MEDS: GABAPENTIN 400 MG CAPSULE PO SCH ×4 (09:31→21:31)
[2022-07-29] MEDS: NYSTATIN CREAM 15 GM TUBE TOP SCH ×2 (09:42→22:51)
[2022-07-29] MEDS: methylPREDNISolone SOD SUC 40 MG/1 ML VIAL IV SCH (09:42)
[2022-07-29] MEDS: HEPARIN 5,000 UNIT/1 ML VIAL SUBCUT SCH ×2 (09:44→22:51)
[2022-07-29] MEDS ORDERED: BISACODYL 10 MG SUPP RECTAL ONE (10:01)
[2022-07-29] MEDS: INSULIN GLARGINE 100 UNIT/ML SUBCUT SCH (21:29)
[2022-07-29] MEDS: CARBIDOPA/LEVODOPA 25-100 MG TABLET PO SCH (21:31)
[2022-07-29] MEDS: ATORVASTATIN 20 MG TABLET PO SCH (21:32)
[2022-07-30] MEDS: ALBUTEROL/IPRATROPIUM 3 ML NEB RESP TX SCH ×4 (01:31→19:15)
[2022-07-30 05:42] LABS: Osmolality,Calculated 292.5 MOS/KG (273-304); Potassium 4.2 MMOL/L (3.5-5.1)
[2022-07-30 05:57] LABS: Basophils % 0.2 % (0.0-0.8); Eosinophils % 0.4 % (0.00-10.9); Hematocrit 40.9 VOL% (35.7-47.0); Hemoglobin 12.5 GM/DL (12.0-16.0); Immature Granulocytes % 1.6 %; Immature Granulocytes Absolute 0.13 #; Lymphocytes # 0.6 10*3/uL (1.4-4.0); Lymphocytes % 6.6 % (21.3-54.2); Mean Corpuscular HGB Conc 30.6 GM/DL (32-36); Mean Corpuscular Volume 100.7 FL (87-102); Mean Platelet Volume 9.8 FL (9.6-12.0); Monocytes # 0.8 10*3/uL (0.11-0.8); Monocytes % 9.4 % (1.7-12.7); Neutrophils % 81.8 % (38.7-73.9); Platelet Count 135 T/CUMM (130-400); Red Blood Count 4.06 MC/CUMM (3.8-5.5); Red Cell Distribution Width 14.3 % (9.3-17.3); White Blood Count 8.4 T/CUMM (4-12)
[2022-07-30] MEDS: LEVOTHYROXINE 150 MCG TABLET PO SCH (06:25)
[2022-07-30] MEDS: POLYETHYLENE GLYCOL POWDER 17 GM PACK PO SCH (09:51)
[2022-07-30] MEDS: FERROUS SULFATE 325 MG TABLET PO SCH (09:52)
[2022-07-30] MEDS: ASPIRIN EC 81 MG TABLET PO SCH (09:52)
[2022-07-30] MEDS: SERTRALINE 50 MG TABLET PO SCH (09:52)
[2022-07-30] MEDS: THEOPHYLLINE ER (24 HR) 400 MG CAPSULE PO SCH (09:52)
[2022-07-30] MEDS: carvediloL 3.125 MG TABLET PO SCH ×2 (09:52→20:29)
[2022-07-30] MEDS: PANTOPRAZOLE 40 MG TABLET PO SCH (09:52)
[2022-07-30] MEDS: GABAPENTIN 400 MG CAPSULE PO SCH ×4 (09:52→20:29)
[2022-07-30] MEDS: NYSTATIN CREAM 15 GM TUBE TOP SCH ×2 (09:53→20:29)
[2022-07-30] MEDS: LACTULOSE 20 GM/30 ML UDCUP PO SCH ×2 (09:53→20:29)
[2022-07-30] MEDS: ISOSORBIDE MONONITRATE 20 MG TABLET PO SCH ×2 (09:54→20:28)
[2022-07-30] MEDS: INSULIN LISPRO 100 UNIT/ML SUBCUT SCH ×4 (09:59→20:34)
[2022-07-30] MEDS: HEPARIN 5,000 UNIT/1 ML VIAL SUBCUT SCH ×2 (10:00→21:30)
[2022-07-30] MEDS: methylPREDNISolone SOD SUC 40 MG/1 ML VIAL IV SCH (10:01)
[2022-07-30] MEDS: CARBIDOPA/LEVODOPA 25-100 MG TABLET PO SCH (20:29)
[2022-07-30] MEDS: ATORVASTATIN 20 MG TABLET PO SCH (20:29)
[2022-07-30] MEDS: INSULIN GLARGINE 100 UNIT/ML SUBCUT SCH (20:30)
[2022-07-31] MEDS: ALBUTEROL/IPRATROPIUM 3 ML NEB RESP TX SCH ×4 (01:00→19:11)
[2022-07-31 05:13] LABS: Basophils % 0.1 % (0.0-0.8); Eosinophils % 0.4 % (0.00-10.9); Hematocrit 38.7 VOL% (35.7-47.0); Hemoglobin 11.6 GM/DL (12.0-16.0); Immature Granulocytes % 1.6 %; Immature Granulocytes Absolute 0.13 #; Lymphocytes # 0.4 10*3/uL (1.4-4.0); Lymphocytes % 5.5 % (21.3-54.2); Mean Corpuscular Volume 103.2 FL (87-102); Mean Platelet Volume 10.2 FL (9.6-12.0); Monocytes # 0.6 10*3/uL (0.11-0.8); Monocytes % 7.3 % (1.7-12.7); Neutrophils % 85.1 % (38.7-73.9); Platelet Count 130 T/CUMM (130-400); Red Blood Count 3.75 MC/CUMM (3.8-5.5); Red Cell Distribution Width 14.1 % (9.3-17.3); White Blood Count 8.1 T/CUMM (4-12)
[2022-07-31 05:35] LABS: Calcium 9.9 MG/DL (8.5-10.1); Osmolality,Calculated 289.5 MOS/KG (273-304); Potassium 4.3 MMOL/L (3.5-5.1)
[2022-07-31] MEDS: LEVOTHYROXINE 150 MCG TABLET PO SCH (06:17)
[2022-07-31] MEDS: INSULIN LISPRO 100 UNIT/ML SUBCUT SCH ×4 (09:25→20:14)
[2022-07-31] MEDS: LACTULOSE 20 GM/30 ML UDCUP PO SCH ×2 (09:26→20:17)
[2022-07-31] MEDS: ISOSORBIDE MONONITRATE 20 MG TABLET PO SCH ×2 (09:26→20:13)
[2022-07-31] MEDS: THEOPHYLLINE ER (24 HR) 400 MG CAPSULE PO SCH (09:26)
[2022-07-31] MEDS: POLYETHYLENE GLYCOL POWDER 17 GM PACK PO SCH (09:26)
[2022-07-31] MEDS: methylPREDNISolone SOD SUC 40 MG/1 ML VIAL IV SCH (09:27)
[2022-07-31] MEDS: LOSARTAN 25 MG TABLET PO SCH (09:27)
[2022-07-31] MEDS: GABAPENTIN 400 MG CAPSULE PO SCH ×4 (09:27→20:13)
[2022-07-31] MEDS: FERROUS SULFATE 325 MG TABLET PO SCH (09:27)
[2022-07-31] MEDS: carvediloL 3.125 MG TABLET PO SCH ×2 (09:28→20:16)
[2022-07-31] MEDS: ASPIRIN EC 81 MG TABLET PO SCH (09:28)
[2022-07-31] MEDS: SERTRALINE 50 MG TABLET PO SCH (09:28)
[2022-07-31] MEDS: PANTOPRAZOLE 40 MG TABLET PO SCH (09:28)
[2022-07-31] MEDS: NYSTATIN CREAM 15 GM TUBE TOP SCH ×2 (09:28→20:14)
[2022-07-31] MEDS: HEPARIN 5,000 UNIT/1 ML VIAL SUBCUT SCH ×2 (09:33→22:54)
[2022-07-31] MEDS: ATORVASTATIN 20 MG TABLET PO SCH (20:13)
[2022-07-31] MEDS: CARBIDOPA/LEVODOPA 25-100 MG TABLET PO SCH (20:13)
[2022-07-31] MEDS: INSULIN GLARGINE 100 UNIT/ML SUBCUT SCH (20:14)
[2022-08-01] MEDS: ALBUTEROL/IPRATROPIUM 3 ML NEB RESP TX SCH ×4 (01:15→20:16)
[2022-08-01] MEDS: LEVOTHYROXINE 150 MCG TABLET PO SCH (06:11)
[2022-08-01 06:59] LABS: Basophils % 0.2 % (0.0-0.8); Eosinophils # 0.1 10*3/uL (0.0-0.87); Eosinophils % 0.6 % (0.00-10.9); Hemoglobin 11.5 GM/DL (12.0-16.0); Immature Granulocytes % 1.6 %; Immature Granulocytes Absolute 0.14 #; Lymphocytes # 0.5 10*3/uL (1.4-4.0); Lymphocytes % 5.2 % (21.3-54.2); Mean Corpuscular HGB Conc 30.3 GM/DL (32-36); Mean Platelet Volume 10.3 FL (9.6-12.0); Monocytes # 0.8 10*3/uL (0.11-0.8); Monocytes % 8.8 % (1.7-12.7); Neutrophils % 83.6 % (38.7-73.9); Platelet Count 130 T/CUMM (130-400); Red Blood Count 3.69 MC/CUMM (3.8-5.5); Red Cell Distribution Width 14.2 % (9.3-17.3); White Blood Count 8.8 T/CUMM (4-12)
[2022-08-01 07:17] LABS: Calcium 9.8 MG/DL (8.5-10.1); Osmolality,Calculated 286.5 MOS/KG (273-304); Potassium 4.4 MMOL/L (3.5-5.1)
[2022-08-01] MEDS ORDERED: VANCOMYCIN INJ 1,750 MG in SODIUM CHLORIDE 0.9% 500 ML IV ONE (07:26)
[2022-08-01] MEDS: INSULIN LISPRO 100 UNIT/ML SUBCUT SCH ×4 (08:44→20:26)
[2022-08-01] MEDS: LACTULOSE 20 GM/30 ML UDCUP PO SCH ×2 (09:10→20:46)
[2022-08-01] MEDS: ISOSORBIDE MONONITRATE 20 MG TABLET PO SCH ×2 (09:10→20:24)
[2022-08-01] MEDS: methylPREDNISolone SOD SUC 40 MG/1 ML VIAL IV SCH (09:10)
[2022-08-01] MEDS: GABAPENTIN 400 MG CAPSULE PO SCH ×4 (09:10→20:24)
[2022-08-01] MEDS: carvediloL 3.125 MG TABLET PO SCH ×2 (09:11→20:24)
[2022-08-01] MEDS: ASPIRIN EC 81 MG TABLET PO SCH (09:11)
[2022-08-01] MEDS: FERROUS SULFATE 325 MG TABLET PO SCH (09:11)
[2022-08-01] MEDS: SERTRALINE 50 MG TABLET PO SCH (09:11)
[2022-08-01] MEDS: LOSARTAN 25 MG TABLET PO SCH (09:11)
[2022-08-01] MEDS: THEOPHYLLINE ER (24 HR) 400 MG CAPSULE PO SCH (09:12)
[2022-08-01] MEDS: PANTOPRAZOLE 40 MG TABLET PO SCH (09:12)
[2022-08-01] MEDS: POLYETHYLENE GLYCOL POWDER 17 GM PACK PO SCH (09:12)
[2022-08-01] MEDS: FUROSEMIDE 40 MG TABLET PO SCH (09:12)
[2022-08-01] MEDS: VANCOMYCIN INJ 2,000 MG in SODIUM CHLORIDE 0.9% 500 ML IV SCH ×2 (09:16→20:28)
[2022-08-01] MEDS: NYSTATIN CREAM 15 GM TUBE TOP SCH ×2 (09:16→20:46)
[2022-08-01] MEDS: HEPARIN 5,000 UNIT/1 ML VIAL SUBCUT SCH ×2 (10:19→22:05)
[2022-08-01] MEDS: ATORVASTATIN 20 MG TABLET PO SCH (20:23)
[2022-08-01] MEDS: CARBIDOPA/LEVODOPA 25-100 MG TABLET PO SCH (20:24)
[2022-08-01] MEDS: INSULIN GLARGINE 100 UNIT/ML SUBCUT SCH (20:25)
[2022-08-02] MEDS: ALBUTEROL/IPRATROPIUM 3 ML NEB RESP TX SCH ×4 (01:21→19:02)
[2022-08-02 05:37] LABS: Basophils % 0.1 % (0.0-0.8); Eosinophils # 0.1 10*3/uL (0.0-0.87); Eosinophils % 0.6 % (0.00-10.9); Hematocrit 38.2 VOL% (35.7-47.0); Hemoglobin 11.6 GM/DL (12.0-16.0); Immature Granulocytes % 1.5 %; Immature Granulocytes Absolute 0.13 #; Lymphocytes # 0.5 10*3/uL (1.4-4.0); Mean Corpuscular HGB Conc 30.4 GM/DL (32-36); Mean Corpuscular Volume 103.2 FL (87-102); Mean Platelet Volume 10.4 FL (9.6-12.0); Monocytes # 0.7 10*3/uL (0.11-0.8); Monocytes % 8.3 % (1.7-12.7); Neutrophils % 83.5 % (38.7-73.9); Platelet Count 123 T/CUMM (130-400); Red Cell Distribution Width 14.1 % (9.3-17.3); White Blood Count 8.8 T/CUMM (4-12)
[2022-08-02 05:50] LABS: Bilirubin,Total 0.9 MG/DL (0.20-1.00); Osmolality,Calculated 289.4 MOS/KG (273-304); Potassium 4.4 MMOL/L (3.5-5.1); Total Protein 6.9 G/DL (6.4-8.2)
[2022-08-02 05:57] LABS: Platelet Estimate Normal
[2022-08-02] MEDS: LEVOTHYROXINE 150 MCG TABLET PO SCH (06:24)
[2022-08-02] MEDS: INSULIN LISPRO 100 UNIT/ML SUBCUT SCH ×4 (07:29→21:57)
[2022-08-02] MEDS ORDERED: cefTRIAXone 1,000 MG in SODIUM CHLORIDE 0.9% 100 ML IV SCH (07:30)
[2022-08-02] MEDS: HEPARIN 5,000 UNIT/1 ML VIAL SUBCUT SCH ×3 (09:26→21:57)
[2022-08-02] MEDS: POLYETHYLENE GLYCOL POWDER 17 GM PACK PO SCH (09:45)
[2022-08-02] MEDS: LACTULOSE 20 GM/30 ML UDCUP PO SCH ×2 (09:45→21:55)
[2022-08-02] MEDS: predniSONE 20 MG TABLET PO SCH ×2 (09:46→21:55)
[2022-08-02] MEDS: ASPIRIN EC 81 MG TABLET PO SCH (09:46)
[2022-08-02] MEDS: LOSARTAN 25 MG TABLET PO SCH (09:46)
[2022-08-02] MEDS: ISOSORBIDE MONONITRATE 20 MG TABLET PO SCH ×2 (09:46→21:55)
[2022-08-02] MEDS: FUROSEMIDE 40 MG TABLET PO SCH (09:46)
[2022-08-02] MEDS: THEOPHYLLINE ER (24 HR) 400 MG CAPSULE PO SCH (09:46)
[2022-08-02] MEDS: SERTRALINE 50 MG TABLET PO SCH (09:46)
[2022-08-02] MEDS: FERROUS SULFATE 325 MG TABLET PO SCH (09:46)
[2022-08-02] MEDS: GABAPENTIN 400 MG CAPSULE PO SCH ×4 (09:46→21:55)
[2022-08-02] MEDS: carvediloL 3.125 MG TABLET PO SCH ×2 (09:47→21:55)
[2022-08-02] MEDS: NYSTATIN CREAM 15 GM TUBE TOP SCH ×2 (09:47→21:55)
[2022-08-02] MEDS: PANTOPRAZOLE 40 MG TABLET PO SCH (09:47)
[2022-08-02] MEDS: CARBIDOPA/LEVODOPA 25-100 MG TABLET PO SCH (21:55)
[2022-08-02] MEDS: ATORVASTATIN 20 MG TABLET PO SCH (21:55)
[2022-08-02] MEDS: INSULIN GLARGINE 100 UNIT/ML SUBCUT SCH (21:55)
[2022-08-03] MEDS: ALBUTEROL/IPRATROPIUM 3 ML NEB RESP TX SCH ×4 (00:41→19:01)
[2022-08-03] MEDS: LEVOTHYROXINE 150 MCG TABLET PO SCH (05:30)
[2022-08-03] MEDS: INSULIN LISPRO 100 UNIT/ML SUBCUT SCH ×4 (08:15→21:20)
[2022-08-03] MEDS: ISOSORBIDE MONONITRATE 20 MG TABLET PO SCH ×2 (10:02→21:20)
[2022-08-03] MEDS: predniSONE 20 MG TABLET PO SCH ×2 (10:04→21:19)
[2022-08-03] MEDS: LINACLOTIDE 145 MCG CAPSULE PO SCH (10:04)
[2022-08-03] MEDS: GABAPENTIN 400 MG CAPSULE PO SCH ×4 (10:04→21:20)
[2022-08-03] MEDS: SERTRALINE 50 MG TABLET PO SCH (10:05)
[2022-08-03] MEDS: FERROUS SULFATE 325 MG TABLET PO SCH (10:05)
[2022-08-03] MEDS: LOSARTAN 25 MG TABLET PO SCH (10:05)
[2022-08-03] MEDS: carvediloL 3.125 MG TABLET PO SCH ×2 (10:06→21:19)
[2022-08-03] MEDS: ASPIRIN EC 81 MG TABLET PO SCH (10:07)
[2022-08-03] MEDS: THEOPHYLLINE ER (24 HR) 400 MG CAPSULE PO SCH (10:07)
[2022-08-03] MEDS: FUROSEMIDE 40 MG TABLET PO SCH (10:11)
[2022-08-03] MEDS ORDERED: FUROSEMIDE 20 MG/2 ML VIAL IV ONE (10:33)
[2022-08-03] MEDS: LACTULOSE 20 GM/30 ML UDCUP PO SCH ×2 (10:51→21:19)
[2022-08-03] MEDS: POLYETHYLENE GLYCOL POWDER 17 GM PACK PO SCH (10:51)
[2022-08-03] MEDS: HEPARIN 5,000 UNIT/1 ML VIAL SUBCUT SCH ×2 (10:52→21:31)
[2022-08-03] MEDS: PANTOPRAZOLE 40 MG TABLET PO SCH (10:56)
[2022-08-03] MEDS: NYSTATIN CREAM 15 GM TUBE TOP SCH ×2 (19:33→21:21)
[2022-08-03] MEDS: ATORVASTATIN 20 MG TABLET PO SCH (21:19)
[2022-08-03] MEDS: CARBIDOPA/LEVODOPA 25-100 MG TABLET PO SCH (21:20)
[2022-08-03] MEDS: INSULIN GLARGINE 100 UNIT/ML SUBCUT SCH (21:27)
[2022-08-04] MEDS: ALBUTEROL/IPRATROPIUM 3 ML NEB RESP TX SCH ×4 (00:20→19:20)
[2022-08-04 04:56] LABS: Basophils % 0.2 % (0.0-0.8); Eosinophils % 0.2 % (0.00-10.9); Hematocrit 35.5 VOL% (35.7-47.0); Hemoglobin 10.9 GM/DL (12.0-16.0); Immature Granulocytes Absolute 0.18 #; Lymphocytes # 0.3 10*3/uL (1.4-4.0); Lymphocytes % 3.7 % (21.3-54.2); Mean Corpuscular HGB Conc 30.7 GM/DL (32-36); Mean Corpuscular Volume 102.9 FL (87-102); Mean Platelet Volume 10.5 FL (9.6-12.0); Monocytes # 0.5 10*3/uL (0.11-0.8); Monocytes % 5.6 % (1.7-12.7); Neutrophils % 88.3 % (38.7-73.9); Platelet Count 118 T/CUMM (130-400); Red Blood Count 3.45 MC/CUMM (3.8-5.5); Red Cell Distribution Width 13.9 % (9.3-17.3)
[2022-08-04 05:15] LABS: Calcium 9.7 MG/DL (8.5-10.1); Osmolality,Calculated 289.4 MOS/KG (273-304); Potassium 4.1 MMOL/L (3.5-5.1)
[2022-08-04] MEDS: LEVOTHYROXINE 150 MCG TABLET PO SCH (06:03)
[2022-08-04 06:20] LABS: Platelet Estimate Adequate
[2022-08-04] MEDS: INSULIN LISPRO 100 UNIT/ML SUBCUT SCH ×5 (08:09→22:13)
[2022-08-04] MEDS: predniSONE 20 MG TABLET PO SCH ×2 (09:05→21:18)
[2022-08-04] MEDS: GABAPENTIN 400 MG CAPSULE PO SCH ×4 (09:05→21:18)
[2022-08-04] MEDS: THEOPHYLLINE ER (24 HR) 400 MG CAPSULE PO SCH (09:05)
[2022-08-04] MEDS: carvediloL 3.125 MG TABLET PO SCH ×2 (09:05→21:18)
[2022-08-04] MEDS: SERTRALINE 50 MG TABLET PO SCH (09:06)
[2022-08-04] MEDS: FUROSEMIDE 40 MG TABLET PO SCH (09:06)
[2022-08-04] MEDS: LOSARTAN 25 MG TABLET PO SCH (09:06)
[2022-08-04] MEDS: ASPIRIN EC 81 MG TABLET PO SCH (09:07)
[2022-08-04] MEDS: NYSTATIN CREAM 15 GM TUBE TOP SCH ×2 (09:07→21:19)
[2022-08-04] MEDS: ISOSORBIDE MONONITRATE 20 MG TABLET PO SCH ×2 (09:07→21:18)
[2022-08-04] MEDS: PANTOPRAZOLE 40 MG TABLET PO SCH (09:07)
[2022-08-04] MEDS: FERROUS SULFATE 325 MG TABLET PO SCH (09:07)
[2022-08-04] MEDS: HEPARIN 5,000 UNIT/1 ML VIAL SUBCUT SCH ×3 (09:15→21:34)
[2022-08-04] MEDS: LACTULOSE 20 GM/30 ML UDCUP PO SCH ×2 (09:18→21:18)
[2022-08-04] MEDS: POLYETHYLENE GLYCOL POWDER 17 GM PACK PO SCH (09:18)
[2022-08-04] MEDS: LINACLOTIDE 145 MCG CAPSULE PO SCH (09:32)
[2022-08-04] MEDS: ATORVASTATIN 20 MG TABLET PO SCH (21:18)
[2022-08-04] MEDS: CARBIDOPA/LEVODOPA 25-100 MG TABLET PO SCH (21:18)
[2022-08-04] MEDS: INSULIN GLARGINE 100 UNIT/ML SUBCUT SCH (21:19)
[2022-08-05 05:09] LABS: Basophils % 0.2 % (0.0-0.8); Eosinophils % 0.2 % (0.00-10.9); Hematocrit 37.3 VOL% (35.7-47.0); Hemoglobin 11.2 GM/DL (12.0-16.0); Immature Granulocytes % 2.5 %; Immature Granulocytes Absolute 0.24 #; Lymphocytes # 0.4 10*3/uL (1.4-4.0); Lymphocytes % 3.8 % (21.3-54.2); Mean Corpuscular Volume 103.3 FL (87-102); Mean Platelet Volume 10.2 FL (9.6-12.0); Monocytes # 0.6 10*3/uL (0.11-0.8); Monocytes % 6.3 % (1.7-12.7); Platelet Count 108 T/CUMM (130-400); Red Blood Count 3.61 MC/CUMM (3.8-5.5); White Blood Count 9.6 T/CUMM (4-12)
[2022-08-05 05:24] LABS: Calcium 9.7 MG/DL (8.5-10.1); Osmolality,Calculated 289.4 MOS/KG (273-304); Potassium 4.2 MMOL/L (3.5-5.1)
[2022-08-05 05:40] LABS: Anisocytosis Slight; Band Neutrophils 5 % (0-10); Hypochromia 1+; Lymphocytes 4 % (20-55); Macrocytosis 1+; Myelocytes 2 %; Platelet Estimate Adequate; Total Cells Counted 100
[2022-08-05] MEDS: LEVOTHYROXINE 150 MCG TABLET PO SCH (06:06)
[2022-08-05] MEDS: ALBUTEROL/IPRATROPIUM 3 ML NEB RESP TX SCH ×3 (07:20→14:26)
[2022-08-05] MEDS: INSULIN LISPRO 100 UNIT/ML SUBCUT SCH ×2 (08:28→11:57)
[2022-08-05] MEDS: LINACLOTIDE 145 MCG CAPSULE PO SCH (08:29)
[2022-08-05] MEDS: LACTULOSE 20 GM/30 ML UDCUP PO SCH (08:29)
[2022-08-05] MEDS: ISOSORBIDE MONONITRATE 20 MG TABLET PO SCH (08:29)
[2022-08-05] MEDS: carvediloL 3.125 MG TABLET PO SCH (08:29)
[2022-08-05] MEDS: POLYETHYLENE GLYCOL POWDER 17 GM PACK PO SCH (08:29)
[2022-08-05] MEDS: FERROUS SULFATE 325 MG TABLET PO SCH (08:30)
[2022-08-05] MEDS: ASPIRIN EC 81 MG TABLET PO SCH (08:30)
[2022-08-05] MEDS: LOSARTAN 25 MG TABLET PO SCH (08:30)
[2022-08-05] MEDS: THEOPHYLLINE ER (24 HR) 400 MG CAPSULE PO SCH (08:30)
[2022-08-05] MEDS: SERTRALINE 50 MG TABLET PO SCH (08:30)
[2022-08-05] MEDS: FUROSEMIDE 40 MG TABLET PO SCH (08:31)
[2022-08-05] MEDS: predniSONE 20 MG TABLET PO SCH (08:31)
[2022-08-05] MEDS: GABAPENTIN 400 MG CAPSULE PO SCH ×2 (08:31→14:05)
[2022-08-05] MEDS: PANTOPRAZOLE 40 MG TABLET PO SCH (08:31)
[2022-08-05] MEDS: NYSTATIN CREAM 15 GM TUBE TOP SCH (08:32)
[2022-08-05] MEDS: HEPARIN 5,000 UNIT/1 ML VIAL SUBCUT SCH (10:34)
[2022-08-05] MEDS ORDERED: TUBERCULIN SKIN TEST 0.1 ML SYRINGE INTRADERM ONE (12:43)
[2022-08-05 16:39] VITALS: BP 147/80
== END 2022-08-05 16:15 | DRG 189 ==
LOC: EDUNIT# → EDBD → N.ED 16:06 → SUATTDRO 23:47 → N.EDINP 23:47 → N.TELES 07-23 19:31
PROVIDERS: ADMIT Hospitalist; ATTEND Internal Medicine Geriatric Medicine